=== PATIENT | male | born 1965 | race Caucasian/White ===

== ENCOUNTER 2021-11-26 19:21 | Emergency (ER) | payer OTHER, SELFPAY ==
--- NOTE | ~2021-11-26 | CT_ITS ---
EXAMINATION: CT HEAD WITHOUT CONTRAST CLINICAL INFORMATION: Cook's palsy COMPARISON: None TECHNIQUE: Contiguous axial imaging was performed from the skull base to vertex without intravenous administration of contrast. This CT examination was performed using dose optimization techniques as appropriate, variously including the following: *Automated exposure control *Adjustment of mA and/or kV according to patient size (this includes techniques or standardized protocols for targeted exams where dose is matched to indication/reason for exam; i.e. extremities or head) *Use of iterative reconstruction technique DLP: 659 mGy-cm FINDINGS: There is no midline shift. There is no mass effect. There is no hemorrhage. The basilar cisterns appear patent. The posterior fossa risk grossly within normal limits. Calcified structure right frontal parietal region measuring 9 mm. This would be consistent with a partially calcified meningioma. Mild effect on the adjacent brain. Note is made of sinus disease. There is some fullness in the region of the right CP angle anterior to the cerebellum. Best seen on image 198 of series 5. Lesion here cannot be excluded CT/CT head/brain wo con IMPRESSION: There is no acute finding here. Partially calcified structure in the right parietal region likely represents a partially calcified meningioma. There is also fullness in the right CP angle. Lesion here cannot be excluded. Recommend pre and postcontrast MR for full evaluation. This would also evaluate etiology of Cook's palsy
[2021-11-26 19:25] VITALS: BP 182/98; PULSE 80; RESP 16; TEMP 36.5; O2SAT 100; BMI 24.6
--- NOTE | 2021-11-26 19:39 | ECG_ITS ---
Test Reason : STROKE PROTOCOL Blood Pressure : / mmHG Vent. Rate : 081 BPM Atrial Rate : 081 BPM P-R Int : 164 ms QRS Dur : 076 ms QT Int : 390 ms P-R-T Axes : 041 028 018 degrees QTc Int : 453 ms Normal sinus rhythm T wave abnormality, consider anterior ischemia Abnormal ECG When compared with ECG of 22-MAR-2019 17:23, QT has lengthened Referred By: Alex Lopez Electronically Signed By:Trevon Conde
--- NOTE | 2021-11-26 20:05 | ED.NEUROSD ---
HPI - Neuro Symptoms/Deficit General Chief Complaint: Stroke Stated Complaint: ?Stroke Time Seen by Provider: 11/26/21 19:47 Source: patient Mode of arrival: ambulatory Limitations: no limitations History of Present Illness HPI Narrative: Patient has no significant past medical hx notice numbness of the left side of the face 3 days ago unable to close his left eye drooling of the foot when he eats no other weakness no headache no head injury no history of lupus or tick bite in the past Related Data Previous Rx's Medication Instructions Recorded prednisone 20 mg tablet 60 mg PO DAILY #18 tab 11/26/21 valacyclovir 1 gram tablet 1,000 mg PO TID #20 tab 11/26/21 (Valtrex) Allergies Allergy/AdvReac Type Severity Reaction Status Date / Time No Known Allergies Allergy Unverified 07/28/20 14:55 Review of Systems Review of Systems: Yes all other systems are reviewed and are negative [facility] Past Medical History Medical History (Updated 11/26/21 @ 21:18 by Alex Lopez MD) HTN (hypertension) Surgical History (Updated 11/26/21 @ 19:30 by Hayley Craig) Hx of appendectomy Social History Social History Advance Directives: No Advance Directives Information Provided: Yes Physical Exam Vital Signs: Vital Signs: Last Vital Signs Temp 98.2 F 11/26/21 21:29 Pulse 86 11/26/21 21:29 Resp 21 H 11/26/21 21:29 BP 146/97 H 11/26/21 21:29 Pulse Ox 97 11/26/21 21:29 BMI result Body Mass Index 24.6 Appearance: Alert. Oriented X3. No acute distress. Eyes: PERRLA, No Nystagmus ENT: Pharynx normal. Oral Mucosa moist Neck: Normal inspection. Neck supple. CVS: Normal heart rate and rhythm. Pulses normal. Respiratory: No respiratory distress. Equal air entry bilateral, no wheezing/rales/rhonchi Abdomen: Soft and nontender. Bowel sounds are present, Skin: Skin warm and dry. Normal skin color. Normal skin turgor. Extremities: No lower extremity edema. No calf tenderness Neuro: Oriented X 3. No motor deficit. No sensory deficit.No cerebellar signs , left 7 nerve lower motor neuron palsy MDM - Neuro Symptoms/Deficit MDM Narrative Medical decision making narrative: Patient clinically with Cook's palsy with no other predisposing factor for any chronic conditions CT head is negative for any acute space-occupying lesion will discharge patient home on prednisone and valtrex Lab Data Attestation: I reviewed the patient's lab results. Result diagrams: 11/26/21 20:15 11/26/21 21:33 Labs: Lab Results 11/26/21 11/26/21 11/26/21 Range/Units 20:15 20:18 21:33 WBC 8.3 (4.8-10.8) X10*3/uL RBC 5.23 (4.60-5.80) X10*6/uL Hgb 16.9 (14.0-18.0) g/dl Hct 48.5 (42.0-52.0) % MCV 92.7 (80.0-98.0) fL MCH 32.3 (27.0-33.0) pg MCHC 34.8 (31.0-36.0) g/dl RDW 11.6 (11.0-16.0) % Plt Count 255 (160-400) X10*3/uL MPV 10.0 (9.4-12.4) fL Immature Gran % (Auto) 0.4 (0.0-0.4) % Neut % (Auto) 57.0 (45-73) % Lymph % (Auto) 28.5 (20-40) % [place] % (Auto) 11.4 H (2-11) % Eos % (Auto) 2.2 (0-4) % Baso % (Auto) 0.5 (0-2) % Lymph # (Auto) 2.4 (1.2-4.9) X10*3/uL [place] # (Auto) 1.0 (0.1-1.2) X10*3/uL Eos # (Auto) 0.2 (0.0-0.4) X10*3/uL Baso # (Auto) 0.0 (0.0-0.2) X10*3/uL Abs Immat Gran (auto) 0.03 (0.00-0.03) X10*3/uL Absolute Neuts (auto) 4.8 (2.0-8.3) x10*3/uL Absolute Nucleated RBC 0.000 (0.0-0.012) X10*3/uL Nucleated RBC % (auto) 0.0 (0.0-0.2) /100WBC ESR 2 (0-15) MM/HR Sodium 139 (135-145) mmol/L Potassium 4.2 (3.3-5.1) mmol/L Chloride 105 (96-108) mmol/L Carbon Dioxide 24 (22-29) mmol/L Anion Gap 14 (12-20) BUN 13 (9-16) mg/dL Creatinine 0.77 (0.5-1.4) mg/dL Estim Creat Clear Calc 104.8 Estimated GFR > 60 Random Glucose 90 (60-115) mg/dL Calcium 9.2 (8.4-10.2) mg/dL Discharge Plan Discharge Clinical Impression: Cook palsy Patient Disposition: Home, Self-Care Instructions: Cook Palsy (ED) Additional Instructions: Facial exercises and care of the left eye as advised Medication as prescribed Follow-up with the neurologist if any concern Prescriptions: New prednisone 20 mg tablet 60 mg PO DAILY Qty: 18 RF: 0 valacyclovir [Valtrex] 1 gram tablet 1,000 mg PO TID Qty: 20 RF: 0 Referrals: Samra Proctor MD [Physician] - 1 week
[2021-11-26] MEDS: predniSONE 20 MG TABLET 60 MG PO (20:21)
[2021-11-26 20:38] LABS: MANUAL DIFF FLAG NO
[2021-11-26 20:43] LABS: Basophils Percent Auto 0.5 % (0-2); Eosinophils Absolute Auto 0.2 X10*3/uL (0.0-0.4); Eosinophils Percent Auto 2.2 % (0-4); Hematocrit 48.5 % (42.0-52.0); Hemoglobin 16.9 g/dl (14.0-18.0); Imm Gran Abs Auto 0.03 X10*3/uL (0.00-0.03); Imm Gran Pct Auto 0.4 % (0.0-0.4); Lymphocytes Absolute Auto 2.4 X10*3/uL (1.2-4.9); Lymphocytes Percent Auto 28.5 % (20-40); Mean Corpuscular HGB Conc 34.8 g/dl (31.0-36.0); Mean Corpuscular Hemoglobin 32.3 pg (27.0-33.0); Mean Corpuscular Volume 92.7 fL (80.0-98.0); Monocytes Percent Auto 11.4 % (2-11); Neutrophils Absolute Auto 4.8 x10*3/uL (2.0-8.3); Platelet Count 255 X10*3/uL (160-400); Red Blood Count 5.23 X10*6/uL (4.60-5.80); Red Cell Distribution Width 11.6 % (11.0-16.0); White Blood Count 8.3 X10*3/uL (4.8-10.8)
[2021-11-26 21:29] VITALS: BP 146/97; PULSE 86; RESP 21; TEMP 36.8; O2SAT 97
[2021-11-26 21:39] LABS: Erythrocyte Sedimentation Rate 2 MM/HR (0-15)
[2021-11-26 21:55] LABS: Anion Gap 14 (12-20); Blood Urea Nitrogen 13 mg/dL (9-16); Calcium 9.2 mg/dL (8.4-10.2); Carbon Dioxide 24 mmol/L (22-29); Chloride 105 mmol/L (96-108); Creatinine Clr Calc Pharmacy 104.8; Estimated Glomerular Filt Rate > 60; Glucose Random 90 mg/dL (60-115); Potassium 4.2 mmol/L (3.3-5.1); Sodium 139 mmol/L (135-145)
--- NOTE | 2021-11-26 22:13 | PC.NURSE ---
pt a&o, neuro intacted , and pt has a steady. Pt able to speack eduardo and able to swallow with no distress. Review discharge instructions with pt and medications. Pt verbalized understanding.
== END 2021-11-26 22:24 | disposition home or self-care (01) ==
PROVIDERS: Emergency Provider Internal Medicine
DX: G51.0 Bell's palsy (principal); Z79.899 Other long term (current) drug therapy
CPT/HCPCS: 36415; 70450; 80048; 85025; 85652; 93005; 99284

== ENCOUNTER 2025-07-19 01:22 | Inpatient (IN) | payer OTHER, SELFPAY ==
--- NOTE | ~2025-07-19 | CT_ITS ---
CLINICAL HISTORY: Upper abd pain; tenderness CT abdomen and pelvis with contrast Comparison: None provided Findings: CT abdomen: Lung bases are clear. No acute bony abnormality. No focal hepatic lesions. Main portal vein is patent. Spleen, pancreas, adrenal glands, and kidneys are unremarkable for acute findings. Peripherally calcified gallstone measures 12 mm in size. Low-density stones are also seen within the gallbladder. No definitive gallbladder wall thickening. There is suggestion of mild pericholecystic induration. Common bile duct is of normal caliber. Moderate fluid distention of the stomach. Small bowel loops are of normal caliber. Small central mesenteric lymph nodes are all less than 5 mm in size. These are increased in number but not size. CT pelvis: No focal areas of colonic wall thickening are identified. No findings of appendicitis. No free fluid or free air. Urinary bladder is moderately distended. IMPRESSION: 1. Cholelithiasis with questionable mild pericholecystic induration. Clinical correlation advised as to the possibility of cholecystitis. Gallbladder ultrasound could further evaluate. 2. Otherwise, no acute findings. This document has been electronically signed by: Samir Payton MD on 07/19/2025 03:02:29
--- NOTE | ~2025-07-19 | US_ITS ---
CLINICAL HISTORY: Biliary Colic US abdomen limited Comparison: CT/SR - CT ABDOMEN PELVIS W IV CON - 07/19/25 02:11 EDT Findings: Echogenic shadowing stones are seen filling the gallbladder resulting in wall echo shadow sign. Gallbladder wall is thickened measuring between 5 and 7 mm in thickness. No discrete pericholecystic fluid is identified. Patient has a reported positive sonographic Silverman's sign. Common bile duct is within normal limits. No intrahepatic biliary ductal dilatation. IMPRESSION: Cholelithiasis resulting in wall echo shadow sign. There are additional findings of gallbladder wall thickening and a positive sonographic Silverman's sign. These are the 3 most specific ultrasound findings of cholecystitis. Surgical consultation suggested. This document has been electronically signed by: Samir Payton MD on 07/19/2025 04:43:26
[2025-07-19 01:27] VITALS: BP 189/77; PULSE 64; RESP 20; TEMP 36.8; O2SAT 100; BMI 21.4
--- NOTE | 2025-07-19 01:49 | ED.ABDPAIN ---
HPI - Abdominal Pain General Chief Complaint: Abdominal Pain Stated Complaint: severe abd pain Time Seen by Provider: 07/19/25 01:33 Source: patient Mode of arrival: ambulatory Limitations: no limitations History of Present Illness ED Provider: Keshav SHEA HPI narrative: The patient is a 59-year-old male presenting to the ED reporting approximate 1.5 hours prior to arrival in the ED he developed severe epigastric abdominal pain radiating to his shoulder. The patient reports he was seen approximately 1 month ago in [place] while visiting a friend and diagnosed with gallstones. The patient reports he attempted to follow up with GI however due to insurance issues he was unable to see GI without a PCP referral which he has not yet been able to facilitate. The patient reports he was doing well until he ate 3 cheeseburgers this evening with subsequent development of pain as described. The patient denies associated fever/chills, nausea, vomiting, diarrhea, recent sick contacts, or recent trauma. Related Data Previous Rx's ?Medication ?Instructions ?Recorded prednisone 20 mg tablet 60 mg (3 x 20 mg) PO DAILY #18 tabs 11/26/21 valacyclovir 1 gram tablet 1,000 mg PO TID #20 tabs 11/26/21 (Valtrex) lisinopril 5 mg tablet 5 mg PO DAILY 30 days #30 tabs 02/24/22 Allergies Allergy/AdvReac Type Severity Reaction Status Date / Time No Known Allergies Allergy Verified 07/19/25 01:29 Review of Systems Review of Systems Yes all other systems are reviewed and are negative PMFSH Past Medical History Medical History (Updated 07/19/25 @ 08:04 by Jame Alfaro DO) HTN (hypertension) Surgical History (Updated 11/26/21 @ 19:30 by Hayley Craig) Hx of appendectomy Social History Social History Housing: Apartment Alcohol intake: former Patient Tobacco Use Status: Current everyday Tobacco user Cigarettes Per Day: 10 Smoked in Last 30 Days: Yes e-Cigarette/Vaping Use: Never Used Second Hand Smoke Exposure: Yes Use of substances other than those prescribed or required for medical reasons: No Advance Directives: No Advance Directives Information Provided: No service: No Current occupational status: employed Current occupation: [employer] Current occupational exposures/hazards: No Physical Exam ED Vital Signs: Vital Signs - 24 hr 07/19/25 01:27 07/19/25 04:29 Temperature 98.2 F 98.1 F Pulse Rate 64 52 Respiratory Rate 20 18 Blood Pressure 189/77 H 175/75 H Pulse Oximetry 100 100 Oxygen Delivery Method Room Air Room Air BMI result Body Mass Index 21.4 CONSTITUTIONAL: The patient appears uncomfortable, but otherwise non-toxic, well nourished and in no acute distress. Vital signs as documented. HEAD: Atraumatic, normocephalic. EYES: EOMs grossly intact, pupils equal, conjunctiva clear, no exudate. ENT: Nares patent, no discharge. Airway patent, no audible stridor, visible mucosa is pink and moist without noted lesions. NECK: Trachea is midline, no obvious masses or gross abnormalities. CHEST: Symmetric movement, normal appearance. LUNGS: LS present and CTAB, no w/r/r. Non-labored work of breathing. CARDIAC: Regular Rhythm, S1/S2 appreciated, no murmurs, rubs or gallops. ABDOMEN: Abdomen soft x4 quadrants, positive tenderness to palpation of the epigastrium and right upper quadrant, negative rebound, negative Silverman's, no palpable masses or organomegaly. Negative CVAT bilaterally. : Deferred. EXTREMITIES: Normal tone, moves all extremities spontaneously without reported pain. No obvious acute injury or deformity noted. NEURO: Alert and oriented x3, CN II-XII appear grossly intact. Cerebellar Functioning grossly intact. No obvious sensory or motor deficits. Speech clear and appropriate. PSYCH: normal affect, appropriate eye contact, fluid speech, with appropriate response to questioning. No reported suicidality or homicidality. SKIN: Warm, dry, color appropriate, normal turgor. No rashes noted. Course Reevaluation(s) Reevaluation #1: 7:06 AM 07/19/2025 (Dr. Jame Alfaro): I, Dr. Alfaro have take over the care of this patient, I reviewed pertinent blood work and imaging, re-evaluated the patient when appropriate. High suspicion for cholecystitis, we will await surgical consultation we will order fluids and IV antibiotics Medical Decision Making Medical Decision Making MDM Narrative: 1:53 AM 07/19/2025 (Rickey SHEA): The patient is a 59-year-old male presenting to the ED for evaluation of 1.5 hours of epigastric abdominal pain radiating to the shoulders which began shortly after eating cheeseburgers. Patient was diagnosed with gallstones while visiting a friend's house and [place] approximately 1-2 months ago. Patient did not follow up with GI due to insurance issues. In the ED patient is nontoxic appearing, but in obvious discomfort. Abdomen exam reveals tenderness of the epigastrium and right upper quadrant without rebound or Silverman's. Patient will be evaluated with laboratory workup, CT abdomen and pelvis, and we will treat symptoms with fluids, Toradol, and Zofran. 3:05 AM 07/19/2025 (Rickey SHEA): Patient reports pain is only minimally controlled with Toradol, morphine added. The patient's CT has resulted and shows cholelithiasis with questionable mild pericholecystic induration, clinical correlation advised for the possibility of acute cholecystitis. Gallbladder ultrasound recommended for further evaluation. The patient's laboratory evaluation reveals no leukocytosis, anemia, electrolyte abnormality, or SAFIA. The patient's LFTs are unremarkable with normal lipase. The patient will be held in the ED for ultrasound tomorrow to further clarify findings on CT. 3:46 AM 07/19/2025 (Rickey SHEA): Thankfully [address]s currently working is also an radiologic technologist and we will perform the gallbladder ultrasound. Patient will be signed out to Dr. Salazar for disposition pending ultrasound results. Admission/Observation Consideration of admission/observation: Escalation of care including admission/observation considered Lab Data MDM Lab Attestation statement: I reviewed the patient's lab results. 07/19/25 01:50 07/19/25 01:50 Labs: Lab Results 07/19/25 Range/Units 01:50 WBC 7.9 (4.8-10.8) X10*3/uL RBC 5.10 (4.60-5.80) X10*6/uL Hgb 15.8 (14.0-18.0) g/dl Hct 44.0 (42.0-52.0) % MCV 86.3 (80.0-98.0) fL MCH 31.0 (27.0-33.0) pg MCHC 35.9 (31.0-36.0) g/dl RDW 12.0 (11.0-16.0) % Plt Count 214 (160-400) X10*3/uL MPV 10.5 (9.4-12.4) fL Immature Gran % (Auto) 0.1 (0.0-0.4) % Neut % (Auto) 61.7 (45-73) % Lymph % (Auto) 26.6 (20-40) % [place] % (Auto) 7.6 (2-11) % Eos % (Auto) 3.4 (0-4) % Baso % (Auto) 0.6 (0-2) % Lymph # (Auto) 2.1 (1.2-4.9) X10*3/uL [place] # (Auto) 0.6 (0.1-1.2) X10*3/uL Eos # (Auto) 0.3 (0.0-0.4) X10*3/uL Baso # (Auto) 0.1 (0.0-0.2) X10*3/uL Abs Immat Gran (auto) 0.01 (0.00-0.03) X10*3/uL Absolute Neuts (auto) 4.9 (2.0-8.3) x10*3/uL Absolute Nucleated RBC 0.000 (0.0-0.012) X10*3/uL Nucleated RBC % (auto) 0.0 (0.0-0.2) /100WBC Sodium 144 (135-145) mmol/L Potassium 4.1 (3.3-5.1) mmol/L Chloride 110 H (96-108) mmol/L Carbon Dioxide 24 (22-29) mmol/L Anion Gap 14 (12-20) BUN 25 H (9-16) mg/dL Creatinine 0.85 (0.5-1.4) mg/dL Estim Creat Clear Calc 88.1 Estimated GFR > 60 Random Glucose 114 (60-115) mg/dL Calcium 9.4 (8.4-10.2) mg/dL Total Bilirubin 0.5 (0.0-1.0) mg/dL AST 24 (5-37) U/L ALT 18 (0-40) U/L Alkaline Phosphatase 86 (39-117) U/L Total Protein 7.0 (6.5-8.0) g/dL Albumin 4.6 (3.5-5.0) g/dL Lipase 22 (8-78) U/L Radiology Impression Discussion of test interpretation with radiology: I have reviewed the radiologist's reading. Radiologist Impression: CLINICAL HISTORY: Upper abd pain; tenderness CT abdomen and pelvis with contrast Comparison: None provided Findings: CT abdomen: Lung bases are clear. No acute bony abnormality. No focal hepatic lesions. Main portal vein is patent. Spleen, pancreas, adrenal glands, and kidneys are unremarkable for acute findings. Peripherally calcified gallstone measures 12 mm in size. Low-density stones are also seen within the gallbladder. No definitive gallbladder wall thickening. There is suggestion of mild pericholecystic induration. Common bile duct is of normal caliber. Moderate fluid distention of the stomach. Small bowel loops are of normal caliber. Small central mesenteric lymph nodes are all less than 5 mm in size. These are increased in number but not size. CT pelvis: No focal areas of colonic wall thickening are identified. No findings of appendicitis. No free fluid or free air. Urinary bladder is moderately distended. IMPRESSION: 1. Cholelithiasis with questionable mild pericholecystic induration. Clinical correlation advised as to the possibility of cholecystitis. Gallbladder ultrasound could further evaluate. 2. Otherwise, no acute findings. This document has been electronically signed by: Samir Payton MD on 07/19/2025 03:02:29 Medications Administered Generic Name Dose Route Start Last Admin Trade Name Freq PRN Reason Stop Dose Admin Sodium Chloride 1,000 mls @ 999 mls/hr 07/19/25 07:15 07/19/25 07:14 Ns IV 07/19/25 08:15 999 mls/hr .Q1H1M SELENE Administration Discontinued Medications Generic Name Dose Route Start Last Admin Trade Name Freq PRN Reason Stop Dose Admin Ceftriaxone Sodium 2 gm 07/19/25 07:05 07/19/25 07:15 Ceftriaxone Sodium 2 Gm Vial IVPUSH 07/19/25 07:06 2 gm ONCE ONE Administration Sodium Chloride 1,000 mls @ 999 mls/hr 07/19/25 01:45 07/19/25 02:54 Ns IV 07/19/25 02:45 Infused .Q1H1M SELENE Infusion Iohexol 85 ml 07/19/25 02:15 07/19/25 02:15 Iohexol 350 Mg/Ml 100 Ml Infus..Btl IV 07/19/25 02:16 85 ml ONCE ONE Administration Ketorolac Tromethamine 15 mg 07/19/25 01:48 07/19/25 01:52 Ketorolac Tromethamine 15 Mg/Ml Vial IVPUSH 07/19/25 01:49 15 mg ONCE ONE Administration Morphine Sulfate 4 mg 07/19/25 02:48 07/19/25 02:56 Morphine Sulfate 4 Mg/Ml Cartridge IVPUSH 07/19/25 02:49 4 mg ONCE ONE Administration Protocol Morphine Sulfate 4 mg 07/19/25 03:45 07/19/25 03:50 Morphine Sulfate 4 Mg/Ml Cartridge IVPUSH 07/19/25 03:46 4 mg ONCE ONE Administration Protocol Ondansetron HCl 4 mg 07/19/25 01:48 07/19/25 01:52 Ondansetron Hcl 4 Mg/2 Ml Vial IVPUSH 07/19/25 01:49 4 mg ONCE ONE Administration Ondansetron HCl 4 mg 07/19/25 03:45 07/19/25 03:50 Ondansetron Hcl 4 Mg/2 Ml Vial IVPUSH 07/19/25 03:46 4 mg ONCE ONE Administration Discharge Plan Discharge Clinical Impression: Acute cholecystitis Patient Disposition: Admitted As Inpatient
[2025-07-19 01:53] LABS: MANUAL DIFF FLAG NO
[2025-07-19 01:54] LABS: Hematocrit 44.0 % (42.0-52.0); Hemoglobin 15.8 g/dl (14.0-18.0); Imm Gran Abs Auto 0.01 X10*3/uL (0.00-0.03); Imm Gran Pct Auto 0.1 % (0.0-0.4); Lymphocytes Absolute Auto 2.1 X10*3/uL (1.2-4.9); Mean Corpuscular HGB Conc 35.9 g/dl (31.0-36.0); Mean Corpuscular Hemoglobin 31.0 pg (27.0-33.0); Mean Corpuscular Volume 86.3 fL (80.0-98.0); NRBC Abs Auto 0.000 X10*3/uL (0.0-0.012); NRBC Pct Auto 0.0 /100WBC (0.0-0.2); Platelet Count 214 X10*3/uL (160-400); Red Blood Count 5.10 X10*6/uL (4.60-5.80); White Blood Count 7.9 X10*3/uL (4.8-10.8)
--- OUTSIDE RECORDS SUMMARY | 2025-07-19 01:58 | XMS_ITS | Clinical Summary ---
Author Organization [address] Address [address] [place] [phone] Phone Care Team Providers Care [employer] Name Role Phone Unavailable Primary Care Provider Unavailabl e Allergies No known active allergies Encounters Date Type Department Care Team Description 05/30/2025 4:38 AM EDT - 05/30/2025 9:35 AM EDT Emergency [facility] [address] [place] [phone] Chu Carpio MD Stevens, Anna L, MD Abdominal pain, unspecified abdominal location (Primary Dx); Calculus of gallbladder without cholecystitis without obstruction; Enteritis Discharge Disposition: Home or Self Care 05/30/2025 Travel from Last 3 Months Social History Tobacco Use Types Packs/Day Years Used Date Smoking Tobacco: Never Assessed Interpersonal Safety Answer Date Record ed Is there anyone in your life that is hurting or threatening you in anyway? no 05/30/2025 Physical Indicators of Abuse No evidence of phys ical abuse 05/30/2025 Sex and Gender Information Value Date Recorded Sex Assigned at Not on file Legal Sex Male 4:32 AM EDT Gender Identity Not on file Sexual Orientation Not on file Last Filed Vital Signs Vital Sign Reading Time Taken Comments Blood Pressure 132/73 05/30/2025 7:16 AM EDT Pulse 61 05/30/2025 7:16 AM EDT Temperature 36.6 C (97.8 F) 05/30/2025 4:40 AM EDT Respiratory Rate 12 05/30/2025 7:16 AM EDT Oxygen Saturation 96% 05/30/2025 8:33 AM EDT Inhaled Oxygen Concentration - - Weight 67.1 kg (147 lb 14.9 oz) 05/30/2025 4:43 AM EDT Height - - Body Mass Index - - Plan of Treatment Health Maintenance Due Date Last Done Comments HIV screening 1979 Hepatitis C screening 1984 Tetanus adult (Td q 10,TDAP once) 1986 Lipid disorder screening 2006 Colon cancer screening, Colonoscopy 2011 Pneumococcal Vaccine (50+ ye ars) (1 of 1 - PCV) 2016 Shingles vaccine (Shingrix) (1 of 2 - Shingrix (RZV) 2 Dose Standard Series) 2016 Covid-19 vaccine series (1 - ) 07/12/2025 Influenza vaccine 07/12/2025 Diabetes screening 05/30/2028 05/30/2025 RSV Immunization (1 - 1-dose 75+ series) 2041 Meningococcal B Vaccine Aged Out No l onger eligible based on patient's age to complete this topic Meningococcal Vaccine Aged Out No darnell fredy eligible based on patient's age to complete this topic Procedures Procedure Name Priority Date/Time Associated Diagnosis Comments US ABDOMEN LIMITED STAT 05/30/2025 8: 03 AM EDT CTA CHEST ABDOMEN PELVIS W AND/OR WO IV CONTRAST Life/Limb Threatening (Within 1 hour) 05/30/2025 5:25 AM EDT EXTRA GOLD TOP SPECIMEN ( GH LMW) STAT 05/30/2025 4:58 AM EDT EXTRA BLUE TOP SPECIMEN ( GH) STAT 05/30/2025 4:58 AM EDT CBC AND DIFFERENTIAL STAT 05/30/2025 4:56 AM EDT COMPREHENSIVE METABOLIC PANEL STAT 05/30/2025 4:56 AM EDT EKG Routine 05/30/2025 4:56 AM EDT CBC WITH AUTO DIFFERENTIAL STAT 05/30/2025 4:56 AM EDT COMPREHENSIVE METABOLIC PANEL STAT 05/30/2025 4:56 AM EDT TROPONIN T HIGH SENSITIVITY, 0 HOUR BASELINE WITH REFLEX (BH GH LMW YH) STAT 05/30/2025 4:56 AM EDT LIPASE STAT 05/30/2025 4:56 AM EDT from Last 3 Months Results * US Abdomen Limited (US Gall Bladder) (05/30/2025 8:03 AM EDT) Anatomical Region Laterality Modality Abdomen, RCC Abdomen/Pelvis Ultr asound 05/30/2025 8:38 AM EDT Impressions 05/30/2025 8:44 AM EDT Cholelithiasis. No definite evidence of cholecystitis Reported and signed by: Anni Maier MD Narrative 05/30/2025 8:44 AM EDT US ABDOMEN LIMITED HISTORY: ruq pain. COMPARISON: None. TECHNIQUE: Gallbladder ultrasound was performed using 2D rao-scale imaging. Color duplex and spectral Doppler were also utilized where applicable. FINDINGS: Gallbladder wall thickness is measured at 4 mm. The gallbladder appears filled with stones and sludge. Common bile duct measures 4 mm. Procedure Note Anni Maier MD - 05/30/2025 US ABDOMEN LIMITED HISTORY: ruq pain. COMPARISON: None. TECHNIQUE: Gallbladder ultrasound was performed using 2D rao-scaleimaging. Color duplex and spectral Doppler were also utilized whereapplicable. FINDINGS: Gallbladder wall thickness is measured at 4 mm. The gallbladder appearsfilled with stones and sludge. Common bile duct measures 4 mm. IMPRESSION: Cholelithiasis. No definite evidence of cholecystitis Reported and signed by: Anni Maier MD Chu Carpio MD IMG US ORDERABLES Final Result * CTA CHEST, ABDOMEN and PELVIS (05/30/2025 5:25 AM EDT) Anatomical Region Laterality Modality Chest, Abdomen, Pelvis, Orth o Pelvis, Abdomen and Pelvis, Vascular, RCC Abdomen/Pelvis, RCC CTA Chest Co mputed Tomography 05/30/2025 7:40 AM EDT Impressions 05/30/2025 7:49 AM EDT 1. Normal thoracic and abdominal aorta. 2. No acute lung abnormality. 3. Fluid-filled mildly prominent small bowel loops in the abdomen may indicate enteritis.. 4. Cholelithiasis. Reported and signed by: MD Brooke Solo 05/30/2025 7:49 AM EDT CTA CHEST, ABDOMEN AND PELVIS HISTORY: epigastric pain to back, htn. COMPARISON: None. G9637 - RADIATION DOSE ACQUIRED DURING SCAN: 580.95 mGy.cm. The [facility] Imaging Department strives for high quality imaging with the lowest possible radiation dose. For more information on medical radiation exposure please visit: [email or web address] . TECHNIQUE: Contiguous unenhanced axial images were obtained through the chest. This was followed by axial images through the chest, abdomen, and pelvis obtained during the arterial phase of enhancement. Only intravenous contrast (70 cc of Omnipaque 350) was administered. Sagittal and coronal reformatted images were provided. 3D/MIP reformatted images were constructed on a dependent workstation and stored per protocol. FINDINGS: Preliminary noncontrast images demonstrate normal caliber of the thoracic aorta. There is no intramural hematoma. Following contrast administration the aorta is normally enhanced. There is no dissection. The mesenteric and renal arteries are patent. 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 There is no iliac artery aneurysm or stenosis. There is a 10 mm peripherally enhancing left thyroid nodule. The cardiac size is within normal limits. There is no pericardial effusion. The lungs are clear. The trachea and central bronchial tree are patent. There is no mediastinal, hilar, or axillary adenopathy. The liver is homogenous. The gallbladder is stone filled. There is no associated inflammatory change. There is no biliary duct dilatation. The spleen, pancreas and adrenal glands appear normal. The kidneys are nonobstructed. The bladder is unremarkable. No free intra-abdominal fluid. No bowel obstruction. Several small bowel loops appear fluid-filled and slightly distended. Air-fluid level is seen. The maximal diameter approximately 2 cm . Appendix is not identified. No pelvic or para-aortic adenopathy. No acute skeletal abnormality. The visualized osseous structures are intact. Procedure Note Anni Maier MD - 05/30/2025 CTA CHEST, ABDOMEN AND PELVIS HISTORY: epigastric pain to back, htn. COMPARISON: None. G9637 - RADIATION DOSE ACQUIRED DURING SCAN: 580.95 mGy.cm. The [facility] Imaging Department strives for high qualityimaging with the lowest possible radiation dose. For more information onmedical radiation exposure please visit: [email or web address] . TECHNIQUE: Contiguous unenhanced axial images were obtained through thechest. This was followed by axial images through the chest, abdomen, andpelvis obtained during the arterial phase of enhancement. Only intravenouscontrast (70 cc of Omnipaque 350) was administered. Sagittal and coronalreformatted images were provided. 3D/MIP reformatted images wereconstructed on a dependent workstation and stored per protocol. FINDINGS: Preliminary noncontrast images demonstrate normal caliber of thethoracic aorta. There is no intramural hematoma. Following contrastadministration the aorta is normally enhanced. There is no dissection. Themesenteric and renal arteries are patent. 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 There is no iliac artery aneurysm or stenosis. There is a 10 mm peripherally enhancing left thyroid nodule. The cardiacsize is within normal limits. There is no pericardial effusion. The lungs are clear. The trachea and central bronchial tree are patent.There is no mediastinal, hilar, or axillary adenopathy. The liver is homogenous. The gallbladder is stone filled. There is noassociated inflammatory change. There is no biliary duct dilatation. Thespleen, pancreas and adrenal glands appear normal. The kidneys arenonobstructed. The bladder is unremarkable. No free intra-abdominal fluid. No bowel obstruction. Several small bowelloops appear fluid-filled and slightly distended. Air-fluid level is seen.The maximal diameter approximately 2 cm . Appendix is not identified. Nopelvic or para-aortic adenopathy. No acute skeletal abnormality. The visualized osseous structures areintact. IMPRESSION: 1. Normal thoracic and abdominal aorta. 2. No acute lung abnormality. 3. Fluid-filled mildly prominent small bowel loops in the abdomen mayindicate enteritis.. 4. Cholelithiasis. Reported and signed by: Anni Maier MD Chu Carpio MD IMG CT ORDERABLES Final Result * Extra blue top specimen (05/30/2025 4:58 AM EDT) [facility] Hold Specimen Hold 05/30/2025 2:02 PM EDT [facility] Blood Venipuncture / Unknown 05/30/2025 4:58 AM EDT 05/30/2025 5:05 AM EDT us Chu Carpio MD LAB BLOOD ORDERABLES Final Res ult Performing Organization Address [facility]/[place] [address], [facility] [phone] * Extra gold top specimen (05/30/2025 4:58 AM EDT) Blood Venipuncture / Unknown 05/30/2025 4:58 AM EDT 05/30/2025 5:05 AM EDT Chu Carpio MD LAB BLOOD ORDERABLES Final Res ult Performing Organization Address [facility]/[place] [address], [facility] [phone] * (ABNORMAL) Comprehensive metabolic panel (05/30/2025 4:56 AM EDT) [facility] Sodium 143 136 - 145 mmol/L 05/30/2025 5:44 AM [facility] Potassium 4.2 3.5 - 5.1 mmol/L 05/30/2025 5:44 AM [facility] Chloride 110(H) 98 - 107 mmol/L 05/30/2025 5:44 AM [facility] CO2 27 21 - 32 mmol/L 05/30/2025 5:44 AM [facility] Anion Gap 6 5 - 15 mmol/L 05/30/2025 5:44 AM [facility] Glucose 129(H) 65 - 110 mg/dL 05/30/2025 5:44 AM [facility] Comment: Non-fastin-110 mg/dL Fasting (minimum 6 hrs): 65-99 mg/dL BUN 21(H) 7 - 18 mg/dL 05/30/2025 5:44 AM [facility] Creatinine 0.98 0.70 - 1.30 mg/dL 05/30/2025 5:44 AM [facility] Calcium 9.1 8.5 - 10.1 mg/dL 05/30/2025 5:44 AM [facility] Total Protein 7.0 6.4 - 8.2 g/dL 05/30/2025 5:44 AM [facility] Albumin 3.8 3.4 - 5.0 g/dL 05/30/2025 5:44 AM [facility] Globulin 3.2 2.5 - 5.0 g/dL 05/30/2025 5:44 AM [facility] Total Bilirubin 0.4 0.2 - 1.0 mg/dL 05/30/2025 5:44 AM [facility] Comment:Use of this assay is not recommended for patients undergoing treatment with Eltrombopag due to the potential for falsely elevated results. Alkaline Phosphatase 80 45 - 117 U/L 05/30/2025 5:44 AM [facility] Alanine Aminotransferase (ALT) 26 12 - 78 U/L 05/30/2025 5:44 AM [facility] Aspartate Aminotransferase (AST) 13(L) 15 - 37 U/L 05/30/2025 5:44 AM [facility] eGFR (Creatinine) >60 >=60 mL/min/1. 73m2 05/30/2025 5:44 AM [facility] Comment: [facility] utilizes CKD-EPI Creatinine 2020 to report eGFR. Values < 60 mL/min/1.73 m2 may indicate CKD if present for more than three months AND creatinine is at steady state. The eGFR provides a rough estimate of kidney function. For further guidance, please refer to the CKD: Adult [employer] Signature pathway. Creatinine Delta 05/30/20 5:44 AM [facility] Comment:No previous creatini ne <5.00 mg/dL is available within the previous 12 months to calculate a delta creatinine. Blood Venipuncture / Unknown 05/30/2025 4:56 AM EDT 05/30/2025 5:05 AM EDT us Chu Carpio MD LAB BLOOD ORDERABLES Final Res ult Performing Organization Address City/[facility]/[place] [address], [facility] [phone] * Troponin T High Sensitivity, Emergency; 0 hour baseline with reflex (1 hour and 3 hour) (54:56 AM EDT) [facility] High Sensitivity Troponin T <6 See Comment ng/L 05/30/2025 5:30 AM EDT [facility] Comment:High Sensitivity Tro ponin T levels should be interpreted in the context of the [facility] Care Signature pathway. Blood Venipuncture / Unknown 05/30/2025 4:56 AM EDT 05/30/2025 5:05 AM EDT Chu Carpio MD LAB BLOOD ORDERABLES Final Res ult Performing Organization Address [facility] [place] [address], [facility] [phone] * CBC auto differential (05/30/2025 4:56 AM EDT) [facility] WBC 9.8 4.0 - 11.0 x1000/ L 05/30/2025 5:07 AM [facility] RBC 5.16 4.00 - 6.00 M/ L 05/30/2025 5:07 AM [facility] Hemoglobin 16.2 13.2 - 17.1 g/dL 05/30/2025 5:07 AM [facility] Hematocrit 46.70 38.50 - 50.00 % 05/30/2025 5:07 AM [facility] MCV 90.5 80.0 - 100.0 fL 05/30/2025 5:07 AM [facility] MCH 31.4 27.0 - 33.0 pg 05/30/2025 5:07 AM [facility] MCHC 34.7 31.0 - 36.0 g/dL 05/30/2025 5:07 AM [facility] RDW-CV 11.9 11.0 - 15.0 % 05/30/2025 5:07 AM [facility] Platelets 213 150 - 420 x1000/ L 05/30/2025 5:07 AM [facility] MPV 10.8 8.0 - 12.0 fL 05/30/2025 5:07 AM [facility] Neutrophils 71.8 39.0 - 72.0 % 05/30/2025 5:07 AM [facility] Lymphocytes 19.5 17.0 - 50.0 % 05/30/2025 5:07 AM [facility] Monocytes 6.5 4.0 - 12.0 % 05/30/2025 5:07 AM [facility] Eosinophils 1.6 0.0 - 5.0 % 05/30/2025 5:07 AM [facility] Basophil 0.4 0.0 - 1.4 % 05/30/2025 5:07 AM [facility] Immature Granulocytes 0.2 0.0 - 1.0 % 05/30/2025 5:07 AM [facility] nRBC 0.0 0.0 - 1.0 % 05/30/2025 5:07 AM [facility] Absolute Lymphocyte Count 1.91 0.60 - 3.70 x 1000/ L 05/30/2025 5:07 AM [facility] Monocyte Absolute Count 0.64 0.00 - 1.00 x 1000/ L 05/30/2025 5:07 AM [facility] Eosinophil Absolute Count 0.16 0.00 - 1.00 x 1000/ L 05/30/2025 5:07 AM [facility] Basophil Absolute Count 0.04 0.00 - 1.00 x 1000/ L 05/30/2025 5:07 AM [facility] Absolute Immature Granulocyte Count 0.02 0.00 - 0.30 x 1000/ L 05/30/2025 5:07 AM [facility] Absolute nRBC 0.00 0.00 - 1.00 x 1000/ L 05/30/2025 5:07 AM [facility] ANC (Abs Neutrophil Count) 7.02 2.00 - 7.60 x 1000/ L 05/30/2025 5:07 AM [facility] Blood Venipuncture / Unknown 05/30/2025 4:56 AM EDT 05/30/2025 5:05 AM EDT us Chu Carpio MD LAB BLOOD ORDERABLES Final Res ult Performing Organization Address [facility] [place] [address], [facility] [phone] * Lipase (05/30/2025 4:56 AM EDT) Lipase 33 13 - 75 U/L 05/30/2025 5:44 AM EDT [facility] Blood Venipuncture / Unknown 05/30/2025 4:56 AM EDT 05/30/2025 5:05 AM EDT us Chu Carpio MD LAB BLOOD ORDERABLES Final Res ult Performing Organization Address [facility] [address], [facility] [phone] * EKG (05/30/2025 4:56 AM EDT) Heart Rate 54 bpm [facility] EKG QRS Interval 70 ms [facility] EKG QT Interval 458 ms [facility] EKG QTC Interval 435 ms [facility] EKG P [place] 20 deg [facility] EKG QRS [place] 65 deg [facility] EKG T Wave [place] 36 deg [facility] EKG P-R Interval 198 msec [facility] EKG SEVERITY Abnormal ECG severity [facility] EKG Comment::SINUS BRADYCARDIA:C onsider left ventricular hypertrophy:Counterclock pedraza rotation of the heart:Non specific ST-T wave abnormalities:No previous:Electronically Signed On 05-30-2025 14:01:22 EDT by Michael Marrero MD OTHER / Unknown 05/30/2025 4 :56 AM EDT us Chu Carpio MD ECG ORDERABLES Edited Result - Final Performing Organization Address [facility]/State/ZIP Co de Phone Number [facility] EKG from Last 3 Months Insurance [address] [place] [id number] [employer] [address] [place] [phone] [employer]
[2025-07-19 02:07] LABS: Alanine Aminotransferase 18 U/L (0-40); Albumin Level 4.6 g/dL (3.5-5.0); Alkaline Phosphatase 86 U/L (39-117); Anion Gap 14 (12-20); Aspartate Amino Transferase 24 U/L (5-37); Blood Urea Nitrogen 25 mg/dL (9-16); Calcium 9.4 mg/dL (8.4-10.2); Carbon Dioxide 24 mmol/L (22-29); Chloride 110 mmol/L (96-108); Creatinine Clr Calc Pharmacy 88.1; Estimated Glomerular Filt Rate > 60; Lipase 22 U/L (8-78); Potassium 4.1 mmol/L (3.3-5.1); Sodium 144 mmol/L (135-145); Total Protein 7.0 g/dL (6.5-8.0)
[2025-07-19] MEDS: iohexoL 350 MG/ML 100 ML INFUS..BTL 85 ML IV (02:15)
[2025-07-19 04:29] VITALS: BP 175/75; PULSE 52; RESP 18; TEMP 36.7; O2SAT 100
--- NOTE | 2025-07-19 05:01 | PC.NURSE ---
Pt ambulating to and from bathroom with a steady gait.
--- NOTE | 2025-07-19 07:30 | PC.NURSE ---
Patient is a 59-year-old male with a PMH of HTN, presentedto the ED reporting approximate 1.5 hours prior to arrival in the ED he developed severe epigastric abdominal pain radiating to his shoulder. The patient reports he was seen approximately 1 month ago in [place] while visiting a friend and diagnosed with gallstones. The patient reports he attempted to follow up with GI however due to insurance issues he was unable to see GI without a PCP referral which he has not yet been able to facilitate. The patient reports he was doing well until he ate 3 cheeseburgers this evening with subsequent development of pain as described. U/S shows cholelithiasis. Alert and oriented. Lungs clear bilat. Respirations even and non-labored. Abdomen soft with positive sounds. c/i sl epigastric pain 3/10. No LE edema noted. Pending surgical consult.
--- NOTE | 2025-07-19 08:07 | P.HPGS_ITS ---
History of Present Illness History of Present Illness Date of Service: 07/19/25 Chief complaint: acute cholecystitis Narrative: Matthias Glez is a 59 year old male presenting with complaints of abdominal pain in the right upper quadrant. The pain began during the night in his felt mainly in the epigastrium and right upper quadrant with radiation into the shoulders. He reports a previous episode several weeks ago while in [place] and was evaluated in the emergency department in [place]. He was found at that time to have cholecystitis due to cholelithiasis. He was well until last evening when he began to have this similar pain with the associated nausea without vomiting. He denied fever or chills. He subsequently presented to the emergency department and was noted to be exquisitely tender in the right upper quadrant with a positive Silverman sign. CT abdomen and pelvis as well as ultrasound of the abdomen both confirm cholelithiasis with wall thickening and pericholecystic inflammatory changes consistent with acute cholecystitis. He is admitted to the surgical service for further management of the acute cholecystitis. Review of Systems Review of Systems: Yes all other systems are reviewed and are negative [facility] Past Medical History Medical History HTN (hypertension) Surgical History Surgical History Hx of appendectomy Social History Social History Housing: Apartment Alcohol intake: former Patient Tobacco Use Status: Current everyday Tobacco user Cigarettes Per Day: 10 Smoked in Last 30 Days: Yes e-Cigarette/Vaping Use: Never Used Second Hand Smoke Exposure: Yes Use of substances other than those prescribed or required for medical reasons: No Advance Directives: No Advance Directives Information Provided: No service: No Current occupational status: employed Current occupation: [employer] Current occupational exposures/hazards: No Meds Allergies Allergy/AdvReac Type Severity Reaction Status Date / Time No Known Allergies Allergy Verified 07/19/25 01:29 Active Medications: Current Medications Hydromorphone HCl (Hydromorphone Hcl 0.5 Mg/0.5 Ml Syringe) 0.5 mg IVPUSH Q3H PRN; Protocol PRN Reason: Pain, Severe (Pain Scale 7-10) Sodium Chloride (Ns) 1,000 mls @ 999 mls/hr IV .Q1H1M SELENE Stop: 07/19/25 08:15 Last Admin: 07/19/25 07:14 Dose: 999 mls/hr Acetaminophen (Ofirmev) 1,000 mg in 100 mls @ 400 mls/hr IV Q6H PRN PRN Reason: Pain, Mild (Pain Scale 1-3) Dextrose/Lactated Ringer's (D5lr) 1,000 mls @ 125 mls/hr IVCONT .Q8H SELENE Piperacillin Sod/Tazobactam (Sod 3.375 gm/ Sodium Chloride) 50 mls @ 100 mls/hr IV Q6H SELENE Magnesium Hydroxide (Milk Of Magnesia 30 Ml Oral.Susp) 30 ml PO DAILY PRN PRN Reason: Constipation Ondansetron HCl (Ondansetron Hcl 4 Mg/2 Ml Vial) 4 mg IVPUSH QID PRN PRN Reason: Nausea Oxycodone HCl (Oxycodone Hcl Immed Release 5 Mg Tablet) 5 mg PO Q6H PRN PRN Reason: Pain, Moderate(Pain Scale 4-6) Sodium Chloride (0.9 % Sodium Chloride Flush 3 Ml Syringe) 3 ml IVFLUSH QSHIFT SELENE Zolpidem Tartrate (Zolpidem Tartrate 5 Mg Tablet) 5 mg PO BEDTIME PRN PRN Reason: Insomnia Physical Exam Vital Signs: Vital Signs: Last Vital Signs Temp 98.1 F 07/19/25 04:29 Pulse 52 07/19/25 04:29 Resp 18 07/19/25 04:29 BP 175/75 H 07/19/25 04:29 Pulse Ox 100 07/19/25 04:29 O2 Del Method Room Air 07/19/25 04:29 BMI result Body Mass Index 21.4 Const: General: cooperative and no acute distress Nutritional Appearance: well nourished Orientation/consciousness: patient oriented x3 Limitations: no limitations HEENT: Head: Yes normocephalic and Yes atraumatic Ears: hearing grossly normal bilaterally Resp: Effort & Inspection: normal respiratory effort, no audible wheezes, no cough and no respiratory distress Cardio: Jugular venous distension: no JVD GI: Inspection: Yes normal to inspection Palpation (GI): Soft to palpation, Tenderness to palpation present (GI) in the RUQ and Silverman's sign positive; with no rebound tenderness, no guarding and not rigid Percussion: Yes normal to percussion Auscultation: normal bowel sounds Rectal Exam - Male: Yes deferred Skin: Other: Warm, dry, no rash Neuro: General: patient oriented x3 Extrem: General: Yes no clubbing, cyanosis or edema Results Results Labs: Short CBC 07/19/25 Range/Units 01:50 WBC 7.9 (4.8-10.8) X10*3/uL Hgb 15.8 (14.0-18.0) g/dl Hct 44.0 (42.0-52.0) % Plt Count 214 (160-400) X10*3/uL BMP 07/19/25 01:50 Sodium 144 Potassium 4.1 Chloride 110 H Carbon Dioxide 24 BUN 25 H Creatinine 0.85 Calcium 9.4 Liver Function 07/19/25 Range/Units 01:50 Total Bilirubin 0.5 (0.0-1.0) mg/dL AST 24 (5-37) U/L ALT 18 (0-40) U/L Alkaline Phosphatase 86 (39-117) U/L Albumin 4.6 (3.5-5.0) g/dL Assessment and Plan (1) Acute cholecystitis: Status: Acute Plan 59-year-old male patient presenting with complaints of epigastric and right upper quadrant abdominal pain found on workup to have acute cholecystitis due to cholelithiasis. This is his 2nd episode of similar pain. I recommended a laparoscopic or possible open cholecystectomy and after discussion of the procedure, risks, and alternatives, he consents to the surgery. He has been added onto the operative schedule for today. Quality Stroke Does the patient have a stroke diagnosis?: No VTE Prior VTE?: No VTE Risk Level:: Surgical - low VTE Device Contraindication: N/A - Device Ordered VTE Drug Contraindication: Treatment Not Indicated Procedures Date of Service Date of Service: 07/19/25
--- NOTE | 2025-07-19 09:00 | PC.NURSE ---
Patient noted to have an allergic reaction to zosyn with large hives noted to trunk with assoc purititis and lip tingling. Provider notified and benadryl given with good effect.
--- NOTE | 2025-07-19 09:03 | HO.ANESPROP2 ---
Documented by User: Deann Griffin NP 07/19/25 09:03 HPI - Anesthesia Eval Consult details Narrative: 59 yr old male for laparoscopic or possible open cholecystectomy PMFSH Active Problems Active Problems: All Active Problems Acute cholecystitis (Acute) HTN (hypertension) (Acute) Cook's palsy (Acute) Past Medical History Medical History HTN (hypertension) Surgical History Surgical History Hx of appendectomy Social History Social History Household Members: Spouse and Children Housing: Apartment Do you presently have visiting nurse or other home services: No Alcohol intake: former Patient Tobacco Use Status: Current everyday Tobacco user Tobacco use type: Cigarette Cigarettes Per Day: 6 e-Cigarette/Vaping Use: Never Used Second Hand Smoke Exposure: Yes service: No Current occupational status: employed Current occupation: [employer] Current occupational exposures/hazards: No Meds Allergies Allergy/AdvReac Type Severity Reaction Status Date / Time piperacillin Allergy Hives Verified 07/19/25 08:39 Active Medications: Current Medications Hydromorphone HCl (Hydromorphone Hcl 0.5 Mg/0.5 Ml Syringe) 0.5 mg IVPUSH Q3H PRN; Protocol PRN Reason: Pain, Severe (Pain Scale 7-10) Last Admin: 07/19/25 08:08 Dose: 0.5 mg Acetaminophen (Ofirmev) 1,000 mg in 100 mls @ 400 mls/hr IV Q6H PRN PRN Reason: Pain, Mild (Pain Scale 1-3) Dextrose/Lactated Ringer's (D5lr) 1,000 mls @ 125 mls/hr IVCONT .Q8H SELENE Magnesium Hydroxide (Milk Of Magnesia 30 Ml Oral.Susp) 30 ml PO DAILY PRN PRN Reason: Constipation Ondansetron HCl (Ondansetron Hcl 4 Mg/2 Ml Vial) 4 mg IVPUSH QID PRN PRN Reason: Nausea Oxycodone HCl (Oxycodone Hcl Immed Release 5 Mg Tablet) 5 mg PO Q6H PRN PRN Reason: Pain, Moderate(Pain Scale 4-6) Sodium Chloride (0.9 % Sodium Chloride Flush 3 Ml Syringe) 3 ml IVFLUSH QSHIFT SELENE Zolpidem Tartrate (Zolpidem Tartrate 5 Mg Tablet) 5 mg PO BEDTIME PRN PRN Reason: Insomnia Home Medications ?Medication ?Instructions ?Recorded ?Confirmed ?Last Taken ?Type No Known Home Meds 07/19/25 07/19/25 Unknown History Exam Height,Weight and Vital Signs: Height 5 ft 9 in Weight 65.771 kg Last Vital Signs Temp 98.1 F 07/19/25 04:29 Pulse 52 07/19/25 04:29 Resp 18 07/19/25 04:29 BP 175/75 H 07/19/25 04:29 Pulse Ox 100 07/19/25 04:29 O2 Del Method Room Air 07/19/25 04:29 Pertinent Lab Results Pertinent Lab Results: Laboratory Tests 07/19/25 01:50 WBC 7.9 RBC 5.10 Hgb 15.8 Hct 44.0 MCV 86.3 MCH 31.0 MCHC 35.9 RDW 12.0 Plt Count 214 MPV 10.5 Immature Gran % (Auto) 0.1 Neut % (Auto) 61.7 Lymph % (Auto) 26.6 [place] % (Auto) 7.6 Eos % (Auto) 3.4 Baso % (Auto) 0.6 Lymph # (Auto) 2.1 [place] # (Auto) 0.6 Eos # (Auto) 0.3 Baso # (Auto) 0.1 Abs Immat Gran (auto) 0.01 Absolute Neuts (auto) 4.9 Absolute Nucleated RBC 0.000 Nucleated RBC % (auto) 0.0 Sodium 144 Potassium 4.1 Chloride 110 H Carbon Dioxide 24 Anion Gap 14 BUN 25 H Creatinine 0.85 Estim Creat Clear Calc 88.1 Estimated GFR > 60 Random Glucose 114 Calcium 9.4 Total Bilirubin 0.5 AST 24 ALT 18 Alkaline Phosphatase 86 Total Protein 7.0 Albumin 4.6 Lipase 22 Documented by User: Ramya West MD 07/20/25 08:56 [facility] Past Medical History Medical History HTN (hypertension) Family History Family history of problems with anesthesia: No Surgical History Surgical History Hx of appendectomy History of Problems with Anesthesia: No Social History Social History Household Members: Spouse and Children Housing: Apartment Do you presently have visiting nurse or other home services: No Alcohol intake: former Patient Tobacco Use Status: Current everyday Tobacco user Tobacco use type: Cigarette Cigarettes Per Day: 6 e-Cigarette/Vaping Use: Never Used Second Hand Smoke Exposure: Yes service: No Current occupational status: employed Current occupation: [employer] Current occupational exposures/hazards: No Meds Allergies Allergy/AdvReac Type Severity Reaction Status Date / Time piperacillin Allergy Hives Verified 07/19/25 08:39 Home Medications ?Medication ?Instructions ?Recorded ?Confirmed ?Last Taken ?Type No Known Home Meds 07/19/25 07/19/25 Unknown History Exam Pertinent Lab Results Pertinent Lab Results: oLaboratory Tests 07/19/25 01:50 WBC 7.9 RBC 5.10 Hgb 15.8 Hct 44.0 MCV 86.3 MCH 31.0 MCHC 35.9 RDW 12.0 Plt Count 214 MPV 10.5 Immature Gran % (Auto) 0.1 Neut % (Auto) 61.7 Lymph % (Auto) 26.6 [place] % (Auto) 7.6 Eos % (Auto) 3.4 Baso % (Auto) 0.6 Lymph # (Auto) 2.1 [place] # (Auto) 0.6 Eos # (Auto) 0.3 Baso # (Auto) 0.1 Abs Immat Gran (auto) 0.01 Absolute Neuts (auto) 4.9 Absolute Nucleated RBC 0.000 Nucleated RBC % (auto) 0.0 Sodium 144 Potassium 4.1 Chloride 110 H Carbon Dioxide 24 Anion Gap 14 BUN 25 H Creatinine 0.85 Estim Creat Clear Calc 88.1 Estimated GFR > 60 Random Glucose 114 Calcium 9.4 Total Bilirubin 0.5 AST 24 ALT 18 Alkaline Phosphatase 86 Total Protein 7.0 Albumin 4.6 Lipase 22 Airway Mallampati Class: II TM Dist: >3cm Neck ROM: Full Heart: rrr Lungs: cta Assessment and Plan Assessment Anesthesia Assessment: Anesthesia Plan Discussed and Chart Reviewed Final Anesthetic Review Family History of Problems with Anesthesia: No History of Problems with Anesthesia: No NPO: Yes ASA Class: II Final Preanesthetic Review: No Changes in Pt Med Stat, Meds/Allgs Chart Reviewed and Consent Obtained/Reviewed Patient Risk: Low Procedure Risk: Low Anesthetic Plan Anesthetic Plan: GA Disposition: Standard PACU
[2025-07-19] MEDS: Dextrose 5 % and Lactated Ring 1,000 ML 125 ML IVCONT ×2 (09:51→18:17)
--- NOTE | 2025-07-19 10:19 | PHA.MEDREC ---
Addendum entered by Bridgette Little RPh 07/19/25 10:28: reviewed by [facility]. Original Note: Pharmacy Consult ? Medication Reconciliation Pharmacy has completed the medication reconciliation. Spoke with pt and he confirmed he is not taking any medications at this time.
[2025-07-19 12:00] VITALS: BP 157/78; PULSE 57; RESP 16; TEMP 37.1; O2SAT 99
[2025-07-19 14:39] VITALS: BP 168/95; PULSE 62; RESP 15; TEMP 36.5; O2SAT 100
[2025-07-19 17:43] VITALS: BP 182/80; PULSE 64; RESP 18; TEMP 36.9; O2SAT 98
[2025-07-19 19:44] VITALS: BP 184/78; PULSE 59; RESP 18; TEMP 37.6; O2SAT 98
[2025-07-20] VITALS (13 sets, daily range): BP systolic 119–163; BP diastolic 67–86; PULSE 61–82; RESP 12–20; TEMP 36.4–37.7; O2SAT 96–99
[2025-07-20] MEDS: Dextrose 5 % and Lactated Ring 1,000 ML 125 ML IVCONT (01:41)
[2025-07-20 07:04] LABS: Anion Gap 12 (12-20); Blood Urea Nitrogen 6 mg/dL (9-16); Calcium 8.7 mg/dL (8.4-10.2); Carbon Dioxide 26 mmol/L (22-29); Chloride 107 mmol/L (96-108); Creatinine Clr Calc Pharmacy 118.8; Estimated Glomerular Filt Rate > 60; Potassium 3.7 mmol/L (3.3-5.1); Sodium 141 mmol/L (135-145)
--- NOTE | 2025-07-20 08:08 | MHC.SHP ---
Pre-Procedural Eval Section A - 24 Hr Update-Section A only Date of Service: 07/20/25 The patient is an INPATIENT: Yes Changes since office visit: Yes Patient answered all questions; No Cold of Flu in the past 2 weeks, No New Medical Problems and No Changes in Medication The patient has been examined within 24 hours of the surgical procedure. The History & Physical has been completed within 30 days and I have reviewed it.: Yes Section B - Complete if H&P > 30 days Chief Complaint: acute cholecystitis Allergies: Allergies Allergy/AdvReac Type Severity Reaction Status Date / Time piperacillin Allergy Hives Verified 07/19/25 08:39 Plan Diagnosis/Plan: Unchanged I have reviewed the history and physical and performed a pertinent physical examination on my patient. No changes have occurred unless specified. Time Spent With Patient Time: Total time managing care of this patient today ____ minutes.
[2025-07-20] MEDS: cefoTEtan disodium 2 GM VIAL IVPUSH (10:10)
--- NOTE | 2025-07-20 10:27 | W.PM.OPN ---
Operative Note Operative Note Date of Service: 07/20/25 Narrative: Preoperative diagnosis: Acute cholecystitis, cholelithiasis Postoperative diagnosis: Same Procedure: Laparoscopic cholecystectomy Surgeon: Matthias Garg MD Metallurgical Engineering Technician: Annabel Cope PA-C; Saúl Nicholas PA-C, Cindy Snider, MS-3 Anesthesia: General endotracheal Indications for procedure: 59-year-old male patient presenting with complaints of abdominal pain in the right upper quadrant and epigastrium found to have multiple gallstones within the gallbladder with pericholecystic fluid and thickened gallbladder wall consistent with acute cholecystitis. Operative findings: Acute cholecystitis due to cholelithiasis Specimen: gallbladder Estimated blood loss: 2 mL Complications: None Procedure details: Patient was brought to the OR and placed in a supine position. After administering general anesthesia the patient's abdomen was prepped with ChloraPrep and draped in a sterile fashion. A surgical time-out was called the consent confirmed. Patient received preoperative antibiotics and Venodyne boots were in place. Local anesthesia consisting of 0.5% Sensorcaine without epinephrine was infiltrated in a periumbilical region. A 5 mm incision was made above the umbilicus in a transverse fashion. The Veress needle was then inserted while elevating abdominal cavity with towel clips. After positive drop test the abdomen was insufflated to a pressure of 15 mm of mercury. The Veress needle was then removed and a 5 mm trocar inserted. The camera was inserted in the abdomen explored. A 12 mm trocar was then placed in the epigastrium. Two 5 mm trocars placed in the right upper quadrant by the assistant professor of english. The patient was placed in reverse Trendelenburg positioning and rotated to the left. The gallbladder was grasped with the fundus and retracted cephalad by the assistant professor of english. The infundibulum was then grasped and retracted away from the liver bed, also by the assistant professor of english. The Dolphin dissected was then used by the surgeon to dissect the peritoneum off the infundibulum to reveal the junction with the cystic duct. Cystic artery was noted slightly medial and posterior to the cystic duct. After obtaining a critical view the cystic duct was doubly clipped and divided. The cystic artery was then doubly clipped and divided. The gallbladder was then dissected off the liver bed using electrocautery with an L hook. Hemostasis was assured all times using the electrocautery. When the gallbladder is completely dissected off the liver bed was placed in an Endo-Catch bag and brought out through the epigastric incision. The gallbladder was sent to pathology for further examination. The abdomen was then re-examined. The liver bed was irrigated and suctioned dry. No bleeding or bile leak could be identified. CO2 was then evacuated and all trocars removed. Fascia was closed at the epigastric incision using a [id number] 0 Polysorb suture. Skin was closed in all incisions using a subcuticular 4 0 Polysorb suture by both the surgeon and assistant professor of english. Sterile dressings consisting of Steri-Strips, 2 x 2 gauze, and Tegaderm were then applied. The patient tolerated the procedure well. Sponge instrument and needle counts reported as correct. The patient was transferred to PACU in stable condition.
[2025-07-20] MEDS: Lactated Ringers 1,000 ML 80 ML IVCONT (12:06)
[2025-07-21] MEDS: Lactated Ringers 1,000 ML 80 ML IVCONT (00:06)
[2025-07-21 03:28] VITALS: BP 113/59; PULSE 72; RESP 18; TEMP 37.2; O2SAT 97
--- NOTE | 2025-07-21 07:01 | P.PNGS_ITS ---
Subjective Subjective Date of Service: 07/21/25 <[facility] Filed: 07/21/25 07:09> 07/21/25 <Saúl Nicholas PA-C - Last Filed: 07/21/25 07:50> Interval history: The patient is a 59 y/o male POD#1 s/p laparoscopic cholecystectomy for acute cholecystitis. Today he is doing very well. He says he has some soreness with movement which, at its worst, is a 5/10. He is not taking any pain medication at this time. He reports some intermittent R shoulder pain. He is eating a full diet without N/V. He has had flatus but no BM. He has been ambulating to the bathroom. He reports no issues with urination, chest pain, fever, chills, or shortness of breath. <[facility] Filed: 07/21/25 07:09> Physical Exam 2 Vital Signs: Vital Signs: Last Vital Signs Temp 98.9 F 07/21/25 03:28 Pulse 72 07/21/25 03:28 Resp 18 07/21/25 03:28 BP 113/59 L 07/21/25 03:28 Pulse Ox 97 07/21/25 03:28 O2 Del Method Room Air 07/21/25 03:28 BMI result Body Mass Index 21.4 <[facility] Filed: 07/21/25 07:09> Const: General: cooperative, comfortable, no acute distress, alert and awake <[facility] Filed: 07/21/25 07:09> Orientation/consciousness: patient oriented x3 <[facility] Filed: 07/21/25 07:09> Resp: Effort & Inspection: normal respiratory effort and able to speak in complete sentences <[facility] Filed: 07/21/25 07:09> Auscultation: clear to auscultation bilaterally, no crackles, no rales, no rhonchi and no wheezes <[facility] Filed: 07/21/25 07:09> Cardio: Jugular venous distension: no JVD <[facility] Filed: 07/21/25 07:09> Rate: regular rate <[facility] Filed: 07/21/25 07:09> Rhythm: regular rhythm <[facility] Last Filed: 07/21/25 07:09> Heart sounds: no click, no gallops, no murmurs and no rubs <[facility] Filed: 07/21/25 07:09> GI: Palpation (GI): Soft to palpation, nontender and no guarding <[facility] Filed: 07/21/25 07:09> Percussion: Yes normal to percussion <[facility] Filed: 07/21/25 07:09> Auscultation: normal bowel sounds <[facility] Filed: 07/21/25 07:09> Skin: Other: 4x wound dressings in place, 3x bloody/b rown discharge, no surrounding erythema <[facility] Filed: 07/21/25 07:09> Neuro: General: patient oriented x3 <[facility] Filed: 07/21/25 07:09> Objective Data Active Medications Calcium Carbonate (Calcium Carbonate 750 Mg Tab.Chew) 750 mg PO Q6H PRN PRN Reason: Heartburn Hydromorphone HCl (Hydromorphone Hcl 0.5 Mg/0.5 Ml Syringe) 0.5 mg IVPUSH Q3H PRN; Protocol PRN Reason: Pain, Severe (Pain Scale 7-10) Last Admin: 07/19/25 08:08 Dose: 0.5 mg Documented By: AJITH Acetaminophen (Ofirmev) 1,000 mg in 100 mls @ 400 mls/hr IV Q6H PRN PRN Reason: Pain, Mild (Pain Scale 1-3) Lactated Ringer's (Lr) 1,000 mls @ 80 mls/hr IVCONT .[id number] SELENE Last Admin: 07/21/25 00:06 Dose: 80 mls/hr Documented By: RIP Magnesium Hydroxide (Milk Of Magnesia 30 Ml Oral.Susp) 30 ml PO DAILY PRN PRN Reason: Constipation Ondansetron HCl (Ondansetron Hcl 4 Mg/2 Ml Vial) 4 mg IVPUSH QID PRN PRN Reason: Nausea Oxycodone HCl (Oxycodone Hcl Immed Release 5 Mg Tablet) 5 mg PO Q6H PRN PRN Reason: Pain, Moderate(Pain Scale 4-6) Sodium Chloride (0.9 % Sodium Chloride Flush 3 Ml Syringe) 3 ml IVFLUSH QSHIFT [facility] Last Admin: 07/20/25 20:58 Dose: Not Given Documented By: RIP Non-Admin Reason: IV Running Zolpidem Tartrate (Zolpidem Tartrate 5 Mg Tablet) 5 mg PO BEDTIME PRN PRN Reason: Insomnia [facility] Last Filed: 07/21/25 07:09> Labs CBC & Chem 7: 07/19/25 01:50 07/20/25 06:18 <[facility] Last Filed: 07/21/25 07:09> Labs: Laboratory Results - last 24 hr 07/20/25 06:18 Anion Gap 12 Estim Creat Clear Calc 118.8 Estimated GFR > 60 Random Glucose 124 H Calcium 8.7 D <[facility] Last Filed: 07/21/25 07:09> Procedures Date of Service Date of Service: 07/21/25 [facility] Last Filed: 07/21/25 07:09> 07/21/25 <Saúl Nicholas PA-C - Last Filed: 07/21/25 07:50> Progress Note: A&P Assessment and plan (1) S/P laparoscopic cholecystectomy: Status: Acute <[facility] Last Filed: 07/21/25 07:09> Assessment and Plan: The patient is a 59 y/o male POD#1 s/p laparoscopic cholecystectomy for acute cholecystitis who is doing well symptomatically and has had flatus. His physical exam shows some discharge in his wound dressings but is otherwise benign. He should be considered for discharge. PLAN Consider for discharge Continue ambulating Continue full diet Continue using spirometry 10x per hour Continue monitoring for BM <[facility] - Last Filed: 07/21/25 07:09> The patient is a 59 y/o male POD#1 s/p laparoscopic cholecystectomy for acute cholecystitis who is doing well symptomatically and has had flatus. His physical exam shows some discharge in his wound dressings but is otherwise benign. He should be considered for discharge. PLAN Consider for discharge Continue ambulating Continue full diet Continue using spirometry 10x per hour Continue monitoring for BM Patient seen and examined independently. I agree with the above assessment and plan. Patient overall doing well. Abdominal exam soft and mouth of the line aside from some incisional site tenderness. There is some mild strike through on the dressings. Instructed him that he can remove these tomorrow at home. We are planning for discharge today, we will send for pain control and bowel regimen. Patient will follow up in one-week in the office <Saúl Nicholas PA-C - Last Filed: 07/21/25 07:50> Time Spent With Patient Time: Total time managing care of this patient today ____ minutes. <Cinyd Gutierrezh - Last Filed: 07/21/25 07:09> Quality Stroke Does the patient have a stroke diagnosis?: No <Cindy Gutierrezh Filed: 07/21/25 07:09> VTE Prior VTE?: No <Cindy Gutierrezh Last Filed: 07/21/25 07:09> VTE Risk Level:: Surgical - low <Cindy Gutierrezh Last Filed: 07/21/25 07:09> VTE Device Contraindication: N/A - Device Ordered <Cindy Gutierrezh Last Filed: 07/21/25 07:09> VTE Drug Contraindication: Treatment Not Indicated <Cindy Gutierrezh Last Filed: 07/21/25 07:09>
[2025-07-21 07:04] VITALS: BP 117/63; PULSE 64; RESP 16; TEMP 36.5; O2SAT 96
[2025-07-21] MEDS: oxyCODONE HCl Immed Release 5 MG TABLET PO (08:27)
--- NOTE | 2025-07-21 08:42 | PM.DS ---
DS: Providers Provider Date of Service: 07/21/25 Date of admission: 07/19/25 07:45 Date of discharge: 07/21/25 Primary care physician: CECILIA Hopson Admitting clinician: Matthias Garg Attending physician on admission: Matthias Garg Consults: 07/19/25 18:39 Consult to Hospitalist Routine Comment: Consulting Provider: [facility] Reason For Exam: Hypertension Attending physician on discharge: Matthias Garg DS: Diagnosis Discharge Diagnosis (1) S/P laparoscopic cholecystectomy: Status: Acute DS: Summary Hospital Course Hospital Course: Admission HPI: Matthias Glez is a 59 year old male presenting with complaints of abdominal pain in the right upper quadrant. The pain began during the night in his felt mainly in the epigastrium and right upper quadrant with radiation into the shoulders. He reports a previous episode several weeks ago while in [place] and was evaluated in the emergency department in [place]. He was found at that time to have cholecystitis due to cholelithiasis. He was well until last evening when he began to have this similar pain with the associated nausea without vomiting. He denied fever or chills. He subsequently presented to the emergency department and was noted to be exquisitely tender in the right upper quadrant with a positive Silverman sign. CT abdomen and pelvis as well as ultrasound of the abdomen both confirm cholelithiasis with wall thickening and pericholecystic inflammatory changes consistent with acute cholecystitis. He is admitted to the surgical service for further management of the acute cholecystitis. Hospital course: Plan to proceed with laparoscopic cholcystectomy. Patient was brought to OR on 07/20. He tolerated the procedure well and was transferred to the med surg floor for continued management. POD 1 patient doign well overall. Minimal pain at rest, some with ambulation. also having some right shoulder pain, likely secondary to positioning in the OR, or from retained gas after abdomen insufflation. labs were stable, patient tolerating diet, ambulating. [place] ready to be discharged. At the time of dc, patient was in stable condition, abdomen is soft, benign aside from incisional site tenderness. Will f/u in 1-2 weeks in the office Status at Discharge Functional status at discharge: independent ambulation Overall status at discharge: patient is progressing back to baseline Time Attestation Discharge Coordination Time (in mins): 30 Quality: Safe Use of Opioids Does Pt have an Active Cancer Diagnosis on the Problem List?: No Quality: Stroke Does the patient have a stroke diagnosis?: No Physical Exam Vital Signs: Vital Signs: Last Vital Signs Temp 97.7 F 07/21/25 07:04 Pulse 64 07/21/25 07:04 Resp 16 07/21/25 07:04 BP 117/63 07/21/25 07:04 Pulse Ox 96 07/21/25 07:04 O2 Del Method Room Air 07/21/25 07:04 BMI result Body Mass Index 21.4 Const: General: cooperative, comfortable, no acute distress, alert and awake Orientation/consciousness: patient oriented x3 Resp: Effort & Inspection: normal respiratory effort and able to speak in complete sentences Auscultation: clear to auscultation bilaterally, no crackles, no rales, no rhonchi and no wheezes Cardio: Jugular venous distension: no JVD Rate: regular rate Rhythm: regular rhythm Heart sounds: no click, no gallops, no murmurs and no rubs GI: Palpation (GI): Soft to palpation, nontender and no guarding Percussion: Yes normal to percussion Auscultation: normal bowel sounds Skin: Other: 4x wound dressings in place, 3x bloody/brown discharge, no surrounding erythema Neuro: General: patient oriented x3 DS: Data Data Completed and Pending Pending studies at discharge: Pending at discharge 07/20/25 10:13 Surgical [PTH] Routine Discharge Plan Discharge Anticipated Discharge Date/Time: 07/21/25 07:43 Patient Disposition: Home, Self-Care Discharge Diagnosis: acute cholecystitis, s/p laparoscopic cholecystectomy Referrals: Matthias Pascual FNP- [Primary Care Provider, Internal Medicine] - 1 Week Matthias Garg MD [Physician, General Surgery] - 1 Week Discharge Medications: New docusate sodium [Colace] 100 mg capsule 100 mg PO BID PRN (Reason: constipation) Qty: 30 0RF oxycodone 5 mg tablet 5 mg PO Q4H PRN (Reason: pain (scale score 7-10)) Qty: 26 0RF Rx Instructions: Partial Fill upon patient request. Discharge Orders: Discharge Order (Routine); Ordered 07/21/25 Ordered By: Saúl Nicholas Diet: Low fat, low cholesterol Activity on Discharge: No heavy lifting Stand Alone Forms: Patient Portal Discharge page Print Language: Japanese Activity Restrictions/Additional Instructions: If the incision area is tender, you may apply an ice pack for short intervals (No more than 20 minutes on, followed by at least 20 minutes off). Do not apply heat. Do not use creams, lotions, or topical antibiotics. Ok to shower. Remove clear dressings 3 days following your procedure. You have steri strips (small white strips) covering your incision- these will fall off ~1 week. No heavy lifting (>10lbs) or strenuous activity! Take Tylenol Extra-strength 1-2 tabs every 6 hours for the first day, then as needed. Oxycodone every 6-8 hours as needed for pain. Colace 100 mg every day as needed for constipation. Follow up in office with Dr. Garg in 1 week. ([phone]) Call Your Doctor If: -Your temperature exceeds 101.5? F -You experience excessive pain or swelling -You have an unexpected reaction to medication -You have excessive bleeding -You experience continued vomiting/nausea -Your incision begins to separate -Your incision shows signs of infection such as increased redness, swelling, excessive pain, drainage (light blood or clear fluid is normal) or heat Care Plan Goals: Return to baseline health and resume normal activities following recovery period. Health Concerns: HTN acute cholecystitis Plan of Treatment: s/p laparoscopic cholecystectomy pain control follow up in the office in 1 week Assessment: Doing well post op.
--- NOTE | 2025-07-21 08:43 | MHC.CM.PN ---
Patient DX Cholecystitis + Cholelythiasis s/p Cholecystectomy 07/20/25. Lives with . Independent with all functional mobility. PCP Matthias Pascual Patient is discharge today to home self care He has arranged for his son to provide transportation home.
--- NOTE | 2025-07-21 09:07 | HO.POSTANES ---
Post Anesthesia Evaluation Post Anesthesia Evaluation Date of Service: 07/21/25 Vital Signs: Vital Signs Temp Pulse Resp BP Pulse Ox O2 Del Method 07/21/25 07:04 97.7 F 64 16 117/63 96 Room Air 07/21/25 03:28 98.9 F 72 18 113/59 L 97 Room Air Anesthesia: General Mental Status: Awake Pain Control: Satisfactory Nausea/Vomiting: None Hydration: Adequate Anesthesia-Related Issues: No Anes. Related Issues
== END 2025-07-21 08:57 | disposition home or self-care (01) | DRG 263 ==
LOC: HO.ED 07:04 → HO.EDOVER 07:58 → HO.S3 16:59
PROVIDERS: Emergency Medicine; Admitting Provider Surgery; Emergency Provider Emergency Medicine; PCP Nurse Practitioner Family; Visit Provider Surgery
PROC: 0FT44ZZ Resection of Gallbladder, Percutaneous Endoscopic Approach (ICD-10-PCS; CPT 47562; principal; 2025-07-20 08:40)
DX: K80.00 Calculus of gallbladder with acute cholecystitis without obstruction (principal); F17.210 Nicotine dependence, cigarettes, uncomplicated; I10 Essential (primary) hypertension; Z71.6 Tobacco abuse counseling
CPT/HCPCS: 47562; 36415; 74177; 76705; 80048; 80053; 83690; 85025; 88304; 99285; J0131; J0360; J0696; J1100; J1171; J1200; J1885; J2003; J2270; J2405; J2543; J2704; J3010; J7120; Q9967

== ENCOUNTER → 2025-07-19 01:35 | Outpatient (BNV) | payer OTHER, SELFPAY | PROVIDERS: Emergency Provider Emergency Medicine; PCP Nurse Practitioner Family; Visit Provider Radiology Diagnostic Radiology | DX: K80.20 Calculus of gallbladder without cholecystitis without obstruction (principal) | CPT/HCPCS: 74177; 76705 ==

== ENCOUNTER → 2025-07-19 07:45 | Outpatient (BNV) | payer OTHER, SELFPAY | PROVIDERS: Admitting Provider Surgery; Emergency Provider Emergency Medicine; PCP Nurse Practitioner Family; Visit Provider Surgery | DX: K80.00 Calculus of gallbladder with acute cholecystitis without obstruction (principal) | CPT/HCPCS: 47562; 99222 ==

== ENCOUNTER 2025-07-27 09:00 | Outpatient (AMB) | payer OTHER, SELFPAY ==
--- NOTE | 2025-07-27 09:31 | MHC.OFFVIS ---
Vital Signs 07/27/25 09:35 Height 5 ft 9 in Weight 140 lb BMI 20.7 BP 150/69 H Blood Pressure Location Lt brachial Position Sitting Pulse 58 Intake Visit Reasons: s/p Lap Charmaine Intake Note: Patient is seen in office for post op assessment post laparoscopic cholecystectomy. Pt c/o: denies any concerns, healing as expected surgery:07/20/25 Component Lab Tech Required: No Accompanied by: Family/Other Allergies piperacillin Allergy (Verified 07/27/25 09:32) Hives Medication List - Last Reconciled 07/27/25 by Matthias Garg MD docusate sodium (Colace) 100 mg PO BID PRN HPI Comments Details: 59-year-old male patient returning 1 week following laparoscopic cholecystectomy performed on 07/20/2025. Operative findings were consistent with acute cholecystitis with gangrenous changes to the gallbladder wall. He tolerated the procedure well and feels much improved today. He denies any nausea, vomiting, fever, chills, diarrhea, constipation or abdominal pain. He is planning on returning to work on 08/02/2025. [facility] Medical History HTN (hypertension) Surgical History Hx laparoscopic cholecystectomy (07/20/25) Hx of appendectomy Social History Household Members: Spouse and Children Housing: Apartment Do you presently have visiting nurse or other home services: No Alcohol intake: former Patient Tobacco Use Status: Current everyday Tobacco user Tobacco use type: Cigarette Cigarettes Per Day: 6 e-Cigarette/Vaping Use: Never Used Second Hand Smoke Exposure: Yes service: No Current occupational status: employed Current occupation: [employer] Current occupational exposures/hazards: No Physical Exam Const General: comfortable Nutritional Appearance: well nourished Orientation/consciousness: patient oriented x3 Limitations: no limitations Resp Effort & Inspection: normal respiratory effort GI Other: Soft, nondistended, well-healed trocar incisions with minimal bruising. No redness or discharge. No hernias noted with Valsalva maneuvers. Neuro General: patient oriented x3 Extrem General: Yes no clubbing, cyanosis or edema Assessment & Plan Assessment & Plan (1) S/P laparoscopic cholecystectomy: Code(s): Z90.49 - Acquired absence of other specified parts of digestive tract Category: Surgical (2) Acute cholecystitis: Code(s): K81.0 - Acute cholecystitis Category: Medical Plan 59-year-old male patient returning 1 week following laparoscopic cholecystectomy for acute cholecystitis. He tolerated the procedure well in his wounds are healing nicely. He should continue to avoid lifting greater than 10 lb until next week at which time he may return to normal activity. He should avoid fatty/fried foods for approximately 1 month. He should follow up as needed. Coding Level of Care Code Global (02778) Diagnoses S/P laparoscopic cholecystectomy Z90.49 Acute cholecystitis K81.0
[2025-07-27 09:35] VITALS: BP 150/69; PULSE 58; BMI 20.7
--- OUTSIDE RECORDS SUMMARY | 2025-07-27 11:10 | XMS_ITS | Clinical Summary ---
Author Organization [address] Address [address] [place] [phone] Phone Care Team Providers Care Plastic Surgery Specialist Name Role Phone Unavailable Primary Care Provider Unavailabl e Allergies No known active allergies Encounters Date Type Department Care Team Description 05/30/2025 4:38 AM EDT - 05/30/2025 9:35 AM EDT Emergency [facility] [address] [place] [address] [phone] Chu Carpio MD Stevens, Anna L, MD [...] Shingrix (RZV) 2 Dose Standard Series) 2016 Influenza vaccine 06/11/2025 Covid-19 vaccine series (1 - ) 07/12/2025 Diabetes screening 05/30/2028 05/30/2025 RSV Immunization [...] DOSE ACQUIRED DURING SCAN: 580.95 mGy.cm. The [facility] Imaging Department strives for high quality [...] DOSE ACQUIRED DURING SCAN: 580.95 mGy.cm. The [facility] Imaging Department strives for high qualityimaging [...] blue top specimen (05/30/2025 4:58 AM EDT) [facility] Hold Specimen Hold 05/30/2025 2:02 PM EDT [facility] Blood Venipuncture / Unknown 05/30/2025 4:58 AM EDT 05/30/2025 5:05 AM EDT us Chu Carpio MD LAB BLOOD ORDERABLES Final Res ult Performing Organization Address [facility] [place] [address], [facility] [phone] * Extra gold top specimen (05/30/2025 4:58 AM EDT) Blood Venipuncture / Unknown 05/30/2025 4:58 AM EDT 05/30/2025 5:05 AM EDT Chu Carpio MD LAB BLOOD ORDERABLES Final Res ult Performing Organization Address [facility] [place] [address], [facility] [phone] * (ABNORMAL) Comprehensive metabolic panel (05/30/2025 4:56 AM EDT) [facility] Sodium 143 136 - 145 mmol/L 05/30/2025 5:44 AM [facility] Potassium 4.2 3.5 - 5.1 mmol/L 05/30/2025 5:44 AM [facility] Chloride 110(H) 98 - 107 mmol/L 05/30/2025 5:44 AM [facility] CO2 27 21 - 32 mmol/L 05/30/2025 5:44 AM [facility] Anion Gap 6 5 - 15 mmol/L 05/30/2025 5:44 AM [facility] Glucose 129(H) 65 - 110 mg/dL 05/30/2025 5:44 AM [facility] Comment: Non-fastin-110 mg/dL Fasting (minimum 6 hrs): 65-99 mg/dL BUN 21(H) 7 - 18 mg/dL 05/30/2025 5:44 AM [facility] Creatinine 0.98 0.70 - 1.30 mg/dL 05/30/2025 5:44 AM [facility] Calcium 9.1 8.5 - 10.1 mg/dL 05/30/2025 5:44 AM [facility] Total Protein 7.0 6.4 - 8.2 g/dL 05/30/2025 5:44 AM [facility] Albumin 3.8 3.4 - 5.0 g/dL 05/30/2025 5:44 AM [facility] Globulin 3.2 2.5 - 5.0 g/dL 05/30/2025 5:44 AM [facility] Total Bilirubin 0.4 0.2 - 1.0 mg/dL 05/30/2025 5:44 AM [facility] Comment:Use of this assay is not recommended for patients undergoing treatment with Eltrombopag due to the potential for falsely elevated results. Alkaline Phosphatase 80 45 - 117 U/L 05/30/2025 5:44 AM [facility] Alanine Aminotransferase (ALT) 26 12 - 78 U/L 05/30/2025 5:44 AM [facility] Aspartate Aminotransferase (AST) 13(L) 15 - 37 U/L 05/30/2025 5:44 AM [facility] eGFR (Creatinine) >60 >=60 mL/min/1. 73m2 05/30/2025 5:44 AM [facility] Comment: [facility] utilizes CKD-EPI Creatinine 2020 to report eGFR. Values < 60 mL/min/1.73 m2 may indicate CKD if present for more than three months AND creatinine is at steady state. The eGFR provides a rough estimate of kidney function. For further guidance, please refer to the CKD: Adult Audio Visual Director Signature pathway. Creatinine Delta 05/30/20 5:44 AM [facility] Comment:No previous creatini ne <5.00 mg/dL is available within the previous 12 months to calculate a delta creatinine. Blood Venipuncture / Unknown 05/30/2025 4:56 AM EDT 05/30/2025 5:05 AM EDT us Chu Carpio MD LAB BLOOD ORDERABLES Final Res ult Performing Organization Address City/[facility]/[place] [address], [facility] [phone] * Troponin T High Sensitivity, Emergency; 0 hour baseline with reflex (1 hour and 3 hour) (54:56 AM EDT) [facility] High Sensitivity Troponin T <6 See Comment ng/L 05/30/2025 5:30 AM EDT [facility] Comment:High Sensitivity Tro ponin T levels should be interpreted in the context of the [facility] Care Signature pathway. Blood Venipuncture / Unknown 05/30/2025 4:56 AM EDT 05/30/2025 5:05 AM EDT Chu Carpio MD LAB BLOOD ORDERABLES Final Res ult Performing Organization Address [facility] [place] [address], [facility] [phone] * CBC auto differential (05/30/2025 4:56 AM EDT) [facility] WBC 9.8 4.0 - 11.0 x1000/ L 05/30/2025 5:07 AM [facility] RBC 5.16 4.00 - 6.00 M/ L 05/30/2025 5:07 AM [facility] Hemoglobin 16.2 13.2 - 17.1 g/dL 05/30/2025 5:07 AM [facility] Hematocrit 46.70 38.50 - 50.00 % 05/30/2025 5:07 AM [facility] MCV 90.5 80.0 - 100.0 fL 05/30/2025 5:07 AM [facility] MCH 31.4 27.0 - 33.0 pg 05/30/2025 5:07 AM [facility] MCHC 34.7 31.0 - 36.0 g/dL 05/30/2025 5:07 AM [facility] RDW-CV 11.9 11.0 - 15.0 % 05/30/2025 5:07 AM [facility] Platelets 213 150 - 420 x1000/ L 05/30/2025 5:07 AM [facility] MPV 10.8 8.0 - 12.0 fL 05/30/2025 5:07 AM [facility] Neutrophils 71.8 39.0 - 72.0 % 05/30/2025 5:07 AM [facility] Lymphocytes 19.5 17.0 - 50.0 % 05/30/2025 5:07 AM [facility] Monocytes 6.5 4.0 - 12.0 % 05/30/2025 5:07 AM [facility] Eosinophils 1.6 0.0 - 5.0 % 05/30/2025 5:07 AM [facility] Basophil 0.4 0.0 - 1.4 % 05/30/2025 5:07 AM [facility] Immature Granulocytes 0.2 0.0 - 1.0 % 05/30/2025 5:07 AM [facility] nRBC 0.0 0.0 - 1.0 % 05/30/2025 5:07 AM [facility] Absolute Lymphocyte Count 1.91 0.60 - 3.70 x 1000/ L 05/30/2025 5:07 AM [facility] Monocyte Absolute Count 0.64 0.00 - 1.00 x 1000/ L 05/30/2025 5:07 AM [facility] Eosinophil Absolute Count 0.16 0.00 - 1.00 x 1000/ L 05/30/2025 5:07 AM [facility] Basophil Absolute Count 0.04 0.00 - 1.00 x 1000/ L 05/30/2025 5:07 AM [facility] Absolute Immature Granulocyte Count 0.02 0.00 - 0.30 x 1000/ L 05/30/2025 5:07 AM [facility] Absolute nRBC 0.00 0.00 - 1.00 x 1000/ L 05/30/2025 5:07 AM [facility] ANC (Abs Neutrophil Count) 7.02 2.00 - 7.60 x 1000/ L 05/30/2025 5:07 AM [facility] Blood Venipuncture / Unknown 05/30/2025 4:56 AM EDT 05/30/2025 5:05 AM EDT us Chu Carpio MD LAB BLOOD ORDERABLES Final Res ult Performing Organization Address [facility] [place] [address], [facility] [phone] * Lipase (05/30/2025 4:56 AM EDT) Lipase 33 13 - 75 U/L 05/30/2025 5:44 AM EDT [facility] Blood Venipuncture / Unknown 05/30/2025 4:56 AM EDT 05/30/2025 5:05 AM EDT us Chu Carpio MD LAB BLOOD ORDERABLES Final Res ult Performing Organization Address [facility] [place] [address], [facility] [phone] * EKG (05/30/2025 4:56 AM EDT) Heart Rate 54 bpm [facility] EKG QRS Interval 70 ms [facility] EKG QT Interval 458 ms [facility] EKG QTC Interval 435 ms [facility] EKG P Crowder 20 deg [facility] EKG QRS Crowder 65 deg [facility] EKG T Wave Crowder 36 deg [facility] EKG P-R Interval 198 msec [facility] EKG SEVERITY Abnormal ECG severity [facility] EKG Comment::SINUS BRADYCARDIA:C onsider left ventricular hypertrophy:Counterclock pedraza rotation of the heart:Non specific ST-T wave abnormalities:No previous:Electronically Signed On 05-30-2025 14:01:22 EDT by Michael Marrero MD OTHER / Unknown 05/30/2025 4 :56 AM EDT us Chu Carpio MD ECG ORDERABLES Edited Result - Final Performing Organization Address [facility]/State/ZIP Co de Phone Number [facility] EKG from Last 3 Months Insurance [address] [place] [phone] [employer] [address] [place] [phone] [employer]
== END 2025-07-27 10:15 | disposition home or self-care (01) ==
LOC: HO.HGS 09:00
PROVIDERS: PCP Nurse Practitioner Family; Visit Provider Surgery
DX: Z90.49 Acquired absence of other specified parts of digestive tract (principal); K81.0 Acute cholecystitis
CPT/HCPCS: 99024

== ENCOUNTER 2025-08-25 08:12 | Outpatient (REF) | payer OTHER, SELFPAY ==
--- NOTE | ~2025-08-25 | XR_ITS ---
EXAMINATION: XR WRIST, RIGHT CLINICAL INFORMATION: M25.531 - Pain in right wrist COMPARISON: None available. TECHNIQUE: PA, lateral, and oblique views of the right wrist. FINDINGS: No visible acute fracture or dislocation. Mild ulnar negative variance. No significant joint space narrowing. No aggressive bony lesion. No erosions or abnormal soft tissue calcifications. XR/XR wrist RT min 3V IMPRESSION: No radiographic evidence of acute osseous findings. Electronically signed by: Shiva Browne MD 08/25/2025 09:43 AM EDT
--- OUTSIDE RECORDS SUMMARY | 2025-08-26 08:18 | XMS_ITS | Clinical Summary ---
Author Organization [address] Address [address] [place] [phone] Phone Care Team Providers Care Barrel Dedenting Machine Operator Name Role Phone Unavailable Primary Care Provider Unavailabl e Allergies No known active allergies Encounters Date Type Department Care Team Description 05/30/2025 4:38 AM EDT - 05/30/2025 9:35 AM EDT Emergency [facility] [address] [place] [address] [phone] Chu Carpio MD Stevens, Anna L, MD [...] blue top specimen (05/30/2025 4:58 AM EDT) [facility] Hold Specimen Hold 05/30/2025 2:02 PM EDT [facility] Blood Venipuncture / Unknown 05/30/2025 4:58 AM EDT 05/30/2025 5:05 AM EDT us Chu Carpio MD LAB BLOOD ORDERABLES Final Res ult Performing Organization Address [facility] [place] [address], [facility] [phone] * Extra gold top specimen (05/30/2025 4:58 AM EDT) Blood Venipuncture / Unknown 05/30/2025 4:58 AM EDT 05/30/2025 5:05 AM EDT Chu Carpio MD LAB BLOOD ORDERABLES Final Res ult Performing Organization Address [facility] [place] [address], [facility] [phone] * (ABNORMAL) Comprehensive metabolic panel (05/30/2025 4:56 AM EDT) [facility] Sodium 143 136 - 145 mmol/L 05/30/2025 5:44 AM [facility] Potassium 4.2 3.5 - 5.1 mmol/L 05/30/2025 5:44 AM [facility] Chloride 110(H) 98 - 107 mmol/L 05/30/2025 5:44 AM [facility] CO2 27 21 - 32 mmol/L 05/30/2025 5:44 AM [facility] Anion Gap 6 5 - 15 mmol/L 05/30/2025 5:44 AM [facility] Glucose 129(H) 65 - 110 mg/dL 05/30/2025 5:44 AM [facility] Comment: Non-fastin-110 mg/dL Fasting (minimum 6 hrs): 65-99 mg/dL BUN 21(H) 7 - 18 mg/dL 05/30/2025 5:44 AM [facility] Creatinine 0.98 0.70 - 1.30 mg/dL 05/30/2025 5:44 AM [facility] Calcium 9.1 8.5 - 10.1 mg/dL 05/30/2025 5:44 AM [facility] Total Protein 7.0 6.4 - 8.2 g/dL 05/30/2025 5:44 AM [facility] Albumin 3.8 3.4 - 5.0 g/dL 05/30/2025 5:44 AM [facility] Globulin 3.2 2.5 - 5.0 g/dL 05/30/2025 5:44 AM [facility] Total Bilirubin 0.4 0.2 - 1.0 mg/dL 05/30/2025 5:44 AM [facility] Comment:Use of this assay is not recommended for patients undergoing treatment with Eltrombopag due to the potential for falsely elevated results. Alkaline Phosphatase 80 45 - 117 U/L 05/30/2025 5:44 AM [facility] Alanine Aminotransferase (ALT) 26 12 - 78 U/L 05/30/2025 5:44 AM [facility] Aspartate Aminotransferase (AST) 13(L) 15 - 37 U/L 05/30/2025 5:44 AM [facility] eGFR (Creatinine) >60 >=60 mL/min/1. 73m2 05/30/2025 5:44 AM [facility] Comment: [facility] utilizes CKD-EPI Creatinine 2020 to report eGFR. Values < 60 mL/min/1.73 m2 may indicate CKD if present for more than three months AND creatinine is at steady state. The eGFR provides a rough estimate of kidney function. For further guidance, please refer to the CKD: Adult Epitaxial Reactor Operator Signature pathway. Creatinine Delta 05/30/20 5:44 AM [facility] Comment:No previous creatini ne <5.00 mg/dL is available within the previous 12 months to calculate a delta creatinine. Blood Venipuncture / Unknown 05/30/2025 4:56 AM EDT 05/30/2025 5:05 AM EDT us Chu Carpio MD LAB BLOOD ORDERABLES Final Res ult Performing Organization Address City/[facility]/[place] [address], [facility] [phone] * Troponin T High Sensitivity, Emergency; 0 hour baseline with reflex (1 hour and 3 hour) (54:56 AM EDT) [facility] High Sensitivity Troponin T <6 See Comment ng/L 05/30/2025 5:30 AM EDT [facility] Comment:High Sensitivity Tro ponin T levels should be interpreted in the context of the [facility] Care Signature pathway. Blood Venipuncture / Unknown 05/30/2025 4:56 AM EDT 05/30/2025 5:05 AM EDT Chu Carpio MD LAB BLOOD ORDERABLES Final Res ult Performing Organization Address [facility] [place] [address], [facility] [phone] * CBC auto differential (05/30/2025 4:56 AM EDT) [facility] WBC 9.8 4.0 - 11.0 x1000/ L 05/30/2025 5:07 AM [facility] RBC 5.16 4.00 - 6.00 M/ L 05/30/2025 5:07 AM [facility] Hemoglobin 16.2 13.2 - 17.1 g/dL 05/30/2025 5:07 AM [facility] Hematocrit 46.70 38.50 - 50.00 % 05/30/2025 5:07 AM [facility] MCV 90.5 80.0 - 100.0 fL 05/30/2025 5:07 AM [facility] MCH 31.4 27.0 - 33.0 pg 05/30/2025 5:07 AM [facility] MCHC 34.7 31.0 - 36.0 g/dL 05/30/2025 5:07 AM [facility] RDW-CV 11.9 11.0 - 15.0 % 05/30/2025 5:07 AM [facility] Platelets 213 150 - 420 x1000/ L 05/30/2025 5:07 AM [facility] MPV 10.8 8.0 - 12.0 fL 05/30/2025 5:07 AM [facility] Neutrophils 71.8 39.0 - 72.0 % 05/30/2025 5:07 AM [facility] Lymphocytes 19.5 17.0 - 50.0 % 05/30/2025 5:07 AM [facility] Monocytes 6.5 4.0 - 12.0 % 05/30/2025 5:07 AM [facility] Eosinophils 1.6 0.0 - 5.0 % 05/30/2025 5:07 AM [facility] Basophil 0.4 0.0 - 1.4 % 05/30/2025 5:07 AM [facility] Immature Granulocytes 0.2 0.0 - 1.0 % 05/30/2025 5:07 AM [facility] nRBC 0.0 0.0 - 1.0 % 05/30/2025 5:07 AM [facility] Absolute Lymphocyte Count 1.91 0.60 - 3.70 x 1000/ L 05/30/2025 5:07 AM [facility] Monocyte Absolute Count 0.64 0.00 - 1.00 x 1000/ L 05/30/2025 5:07 AM [facility] Eosinophil Absolute Count 0.16 0.00 - 1.00 x 1000/ L 05/30/2025 5:07 AM [facility] Basophil Absolute Count 0.04 0.00 - 1.00 x 1000/ L 05/30/2025 5:07 AM [facility] Absolute Immature Granulocyte Count 0.02 0.00 - 0.30 x 1000/ L 05/30/2025 5:07 AM [facility] Absolute nRBC 0.00 0.00 - 1.00 x 1000/ L 05/30/2025 5:07 AM [facility] ANC (Abs Neutrophil Count) 7.02 2.00 - 7.60 x 1000/ L 05/30/2025 5:07 AM [facility] Blood Venipuncture / Unknown 05/30/2025 4:56 AM EDT 05/30/2025 5:05 AM EDT us Chu Carpio MD LAB BLOOD ORDERABLES Final Res ult Performing Organization Address [facility] [place] [address], [facility] [phone] * Lipase (05/30/2025 4:56 AM EDT) Lipase 33 13 - 75 U/L 05/30/2025 5:44 AM EDT [facility] Blood Venipuncture / Unknown 05/30/2025 4:56 AM EDT 05/30/2025 5:05 AM EDT us Chu Carpio MD LAB BLOOD ORDERABLES Final Res ult Performing Organization Address [facility] [place] [address], [facility] [phone] * EKG (05/30/2025 4:56 AM EDT) Heart Rate 54 bpm [facility] EKG QRS Interval 70 ms [facility] EKG QT Interval 458 ms [facility] EKG QTC Interval 435 ms [facility] EKG P [place] 20 deg [facility] EKG QRS [place] 65 deg [facility] EKG T Wave [place] 36 deg [facility] EKG P-R Interval 198 msec [facility] EKG SEVERITY Abnormal ECG severity [facility] EKG Comment::SINUS BRADYCARDIA:C onsider left ventricular hypertrophy:Counterclock pedraza rotation of the heart:Non specific ST-T wave abnormalities:No previous:Electronically Signed On 05-30-2025 14:01:22 EDT by Michael Marrero MD OTHER / Unknown 05/30/2025 4 :56 AM EDT us Chu Carpio MD ECG ORDERABLES Edited Result - Final Performing Organization Address [facility]/State/ZIP Co de Phone Number [facility] EKG from Last 3 Months Insurance [address] [place] [phone] [employer] [address] [place] [phone] [employer]
== END 2025-08-25 08:13 | disposition home or self-care (01) ==
LOC: HO.HOSX 08:12
PROVIDERS: Visit Provider Orthopaedic Surgery
DX: S62.114A Nondisplaced fracture of triquetrum [cuneiform] bone, right wrist, initial encounter for closed fracture (principal); W18.40XA Slipping, tripping and stumbling without falling, unspecified, initial encounter; Y93.9 Activity, unspecified; Y92.69 Other specified industrial and construction area as the place of occurrence of the external cause; Y99.0 Civilian activity done for income or pay
CPT/HCPCS: 73110; 99202

== ENCOUNTER 2025-08-25 09:19 | Outpatient (AMB) | payer OTHER, SELFPAY ==
[2025-08-25 09:50] VITALS: BMI 20.7
--- NOTE | 2025-08-25 09:50 | MHC.OFFVIS ---
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 States he tripped over a pallet and put his hands out to break his fall. He felt pain and swelling to his hand. He was seen at urgent care where xray were taken, a fracture was confirmed and patient was given a wrist brace to use, he was referred to hand specialist. Today patient states he has no pain or discomfort. He continues to use his wrist brace. Xrays updated in office. Allergies piperacillin Allergy (Verified 08/25/25 09:53) Hives HPI HPI FC-RT wrist Triquetral fracture-WC injury 08/18/25: Details: Matthias is a 59 year old right hand dominant man, here with his , for a right Triquetral fracture, from a fall, DOI: 08/18/25. This is a work related injury, he tripped over a pallet at work. He was seen at urgent care and placed in a velcro wrist splint. He says he is doing well and denies any pain while in his splint. 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 He says he has been working light duty and not doing any heavy lifting. He says his job requires lifting up to ~25lb spools of wire. [facility] Medical History HTN (hypertension) Surgical History Hx laparoscopic cholecystectomy (07/20/25) Hx of appendectomy Social History (Updated 08/25/25 @ 09:53 by LOIS Good) Household Members: Spouse and Children Housing: Apartment Do you presently have visiting nurse or other home services: No Alcohol intake: former Patient Tobacco Use Status: Current everyday Tobacco user Tobacco use type: Cigarette Cigarettes Per Day: 6 e-Cigarette/Vaping Use: Never Used Second Hand Smoke Exposure: Yes service: No Current occupational status: employed Current occupation: [employer] hand Current occupational exposures/hazards: No Review of Systems Const All systems reviewed & are unremarkable except as noted in HPI and below Physical Exam Vital Signs: BMI result Body Mass Index 20.7 Const General: cooperative, healthy appearing and no acute distress Orientation/consciousness: patient oriented x3 HEENT Head: Yes normocephalic and Yes atraumatic Eyes EOM: EOMs intact bilaterally Resp Effort & Inspection: normal respiratory effort and able to speak in complete sentences Cardio Jugular venous distension: no JVD Skin General skin exam: turgor normal Rashes: no rashes Neuro General: patient oriented x3 Extrem Other: Evaluation of Right Upper Extremity: The patient is alert, oriented, and in no acute distress Neuro: Decreased subjective sensation in the radial aspect of his thumb. Normal sensation to all other digits & the ulnar aspect of the thumb Vascular: Cap refill brisk ROM: He can make a fist and extend all his digits Skin: No lacerations or abrasions or evidence of open fracture General: No Erythema or evidence of infection. Mild ecchymosis & no swelling Point tender over the dorsal & ulnar aspect of the triquetrum No snuffbox or scaphoid tubercle tenderness No tenderness over the pisiform No tenderness over the distal radius, DRUJ, or distal ulna DRUJ stable Radiographs: 3 views of the right wrist were taken and viewed by me today in clinic. They show a nondisplaced triquetrum body fracture. He is also point tender directly over the triquetrum Psych Appearance: grossly normal Affect: normal affect Attitude: cooperative Office Procedures AMB Fracture Care Details: Fracture care triquetrum 20290 Fracture Billing Code: Fracture Billing Code Assessment & Plan Assessment & Plan (1) Fracture of triquetrum of right wrist: Code(s): S62.111A - Displaced fracture of triquetrum [cuneiform] bone, right wrist, initial encounter for closed fracture Category: Medical Plan Assessment & Plan: 1. Right Triquetrum body fracture, nondisplaced From a fall, DOI: 08/18/25 This is a work injury I educated him about this condition I discussed operative and non-operative treatment options We will manage this conservatively, and he is in agreement He will wear his velcro wrist splint, like a cast except for showering, for the next 3 weeks. After 2 weeks he can remove this when at rest at home, or while sleeping, as long as he does not have pain. I discussed activity modifications, he is to lift nothing heavier than a cellphone for the next 4 weeks. They should also avoid any heavy impact activities, falls, or sports activities for the next 6 weeks He will perform gentle finger ROM exercises at home, while in his splint. 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 He was given a note for work to remain on light duty, with a 3lb weight limit, for the next 4 weeks He will follow up in 3-4 weeks, with X-rays, 3V R wrist, OOP Scribed for Ludmila Maloney MD by Antoine Perez, medical record coder, on 08/25/25 at 10:05 AM, EST. Orders: Orders XR wrist RT min 3V Today M25.531 - Pain in right wrist Coding Level of Care Code New Pt Level 3 (78986) Diagnoses Fracture of triquetrum of right wrist S62.111A CPT Codes Fracture Care - Fracture Billing Code: Fracture Billing Code ([id number])
--- OUTSIDE RECORDS SUMMARY | 2025-08-25 10:29 | XMS_ITS | Clinical Summary ---
Author Organization [address] Address [address] [place] [phone] Phone Care Team Providers Care Deicer Inspector Electric Name Role Phone Unavailable Primary Care Provider Unavailabl e Allergies No known active allergies Encounters Date Type Department Care Team Description 05/30/2025 4:38 AM EDT - 05/30/2025 9:35 AM EDT Emergency [facility] [address] [place] [address] [phone] Chu Carpio MD Stevens, Anna L, MD [...] DOSE ACQUIRED DURING SCAN: 580.95 mGy.cm. [facility] Imaging Department strives for high quality imaging [...] DOSE ACQUIRED DURING SCAN: 580.95 mGy.cm. [facility] Imaging Department strives for high qualityimaging with [...] blue top specimen (05/30/2025 4:58 AM EDT) [facility] Hold Specimen Hold 05/30/2025 2:02 PM EDT [facility] Blood Venipuncture / Unknown 05/30/2025 4:58 AM EDT 05/30/2025 5:05 AM EDT us Chu Carpio MD LAB BLOOD ORDERABLES Final Res ult Performing Organization Address [facility] [place] [address], [facility] [phone] * Extra gold top specimen (05/30/2025 4:58 AM EDT) Blood Venipuncture / Unknown 05/30/2025 4:58 AM EDT 05/30/2025 5:05 AM EDT Chu Carpio MD LAB BLOOD ORDERABLES Final Res ult Performing Organization Address [facility] [place] [address], [facility] [phone] * (ABNORMAL) Comprehensive metabolic panel (05/30/2025 4:56 AM EDT) [facility] Sodium 143 136 - 145 mmol/L 05/30/2025 5:44 AM [facility] Potassium 4.2 3.5 - 5.1 mmol/L 05/30/2025 5:44 AM [facility] Chloride 110(H) 98 - 107 mmol/L 05/30/2025 5:44 AM [facility] CO2 27 21 - 32 mmol/L 05/30/2025 5:44 AM [facility] Anion Gap 6 5 - 15 mmol/L 05/30/2025 5:44 AM [facility] Glucose 129(H) 65 - 110 mg/dL 05/30/2025 5:44 AM [facility] Comment: Non-fastin-110 mg/dL Fasting (minimum 6 hrs): 65-99 mg/dL BUN 21(H) 7 - 18 mg/dL 05/30/2025 5:44 AM [facility] Creatinine 0.98 0.70 - 1.30 mg/dL 05/30/2025 5:44 AM [facility] Calcium 9.1 8.5 - 10.1 mg/dL 05/30/2025 5:44 AM [facility] Total Protein 7.0 6.4 - 8.2 g/dL 05/30/2025 5:44 AM [facility] Albumin 3.8 3.4 - 5.0 g/dL 05/30/2025 5:44 AM [facility] Globulin 3.2 2.5 - 5.0 g/dL 05/30/2025 5:44 AM [facility] Total Bilirubin 0.4 0.2 - 1.0 mg/dL 05/30/2025 5:44 AM [facility] Comment:Use of this assay is not recommended for patients undergoing treatment with Eltrombopag due to the potential for falsely elevated results. Alkaline Phosphatase 80 45 - 117 U/L 05/30/2025 5:44 AM [facility] Alanine Aminotransferase (ALT) 26 12 - 78 U/L 05/30/2025 5:44 AM [facility] Aspartate Aminotransferase (AST) 13(L) 15 - 37 U/L 05/30/2025 5:44 AM [facility] eGFR (Creatinine) >60 >=60 mL/min/1. 73m2 05/30/2025 5:44 AM [facility] Comment: [facility] utilizes CKD-EPI Creatinine 2020 to report eGFR. Values < 60 mL/min/1.73 m2 may indicate CKD if present for more than three months AND creatinine is at steady state. The eGFR provides a rough estimate of kidney function. For further guidance, please refer to the CKD: Adult Carpenter'S Assistant Signature pathway. Creatinine Delta 05/30/20 5:44 AM [facility] Comment:No previous creatini ne <5.00 mg/dL is available within the previous 12 months to calculate a delta creatinine. Blood Venipuncture / Unknown 05/30/2025 4:56 AM EDT 05/30/2025 5:05 AM EDT us Chu Carpio MD LAB BLOOD ORDERABLES Final Res ult Performing Organization Address City/[facility]/[place] [address], [facility] [phone] * Troponin T High Sensitivity, Emergency; 0 hour baseline with reflex (1 hour and 3 hour) (54:56 AM EDT) [facility] High Sensitivity Troponin T <6 See Comment ng/L 05/30/2025 5:30 AM EDT [facility] Comment:High Sensitivity Tro ponin T levels should be interpreted in the context of the [facility] Care Signature pathway. Blood Venipuncture / Unknown 05/30/2025 4:56 AM EDT 05/30/2025 5:05 AM EDT Chu Carpio MD LAB BLOOD ORDERABLES Final Res ult Performing Organization Address [facility] [place] [address], [facility] [phone] * CBC auto differential (05/30/2025 4:56 AM EDT) [facility] WBC 9.8 4.0 - 11.0 x1000/ L 05/30/2025 5:07 AM [facility] RBC 5.16 4.00 - 6.00 M/ L 05/30/2025 5:07 AM [facility] Hemoglobin 16.2 13.2 - 17.1 g/dL 05/30/2025 5:07 AM [facility] Hematocrit 46.70 38.50 - 50.00 % 05/30/2025 5:07 AM [facility] MCV 90.5 80.0 - 100.0 fL 05/30/2025 5:07 AM [facility] MCH 31.4 27.0 - 33.0 pg 05/30/2025 5:07 AM [facility] MCHC 34.7 31.0 - 36.0 g/dL 05/30/2025 5:07 AM [facility] RDW-CV 11.9 11.0 - 15.0 % 05/30/2025 5:07 AM [facility] Platelets 213 150 - 420 x1000/ L 05/30/2025 5:07 AM [facility] MPV 10.8 8.0 - 12.0 fL 05/30/2025 5:07 AM [facility] Neutrophils 71.8 39.0 - 72.0 % 05/30/2025 5:07 AM [facility] Lymphocytes 19.5 17.0 - 50.0 % 05/30/2025 5:07 AM [facility] Monocytes 6.5 4.0 - 12.0 % 05/30/2025 5:07 AM [facility] Eosinophils 1.6 0.0 - 5.0 % 05/30/2025 5:07 AM [facility] Basophil 0.4 0.0 - 1.4 % 05/30/2025 5:07 AM [facility] Immature Granulocytes 0.2 0.0 - 1.0 % 05/30/2025 5:07 AM [facility] nRBC 0.0 0.0 - 1.0 % 05/30/2025 5:07 AM [facility] Absolute Lymphocyte Count 1.91 0.60 - 3.70 x 1000/ L 05/30/2025 5:07 AM [facility] Monocyte Absolute Count 0.64 0.00 - 1.00 x 1000/ L 05/30/2025 5:07 AM [facility] Eosinophil Absolute Count 0.16 0.00 - 1.00 x 1000/ L 05/30/2025 5:07 AM [facility] Basophil Absolute Count 0.04 0.00 - 1.00 x 1000/ L 05/30/2025 5:07 AM [facility] Absolute Immature Granulocyte Count 0.02 0.00 - 0.30 x 1000/ L 05/30/2025 5:07 AM [facility] Absolute nRBC 0.00 0.00 - 1.00 x 1000/ L 05/30/2025 5:07 AM [facility] ANC (Abs Neutrophil Count) 7.02 2.00 - 7.60 x 1000/ L 05/30/2025 5:07 AM [facility] Blood Venipuncture / Unknown 05/30/2025 4:56 AM EDT 05/30/2025 5:05 AM EDT us Chu Carpio MD LAB BLOOD ORDERABLES Final Res ult Performing Organization Address [facility] [place] [address], [facility] [phone] * Lipase (05/30/2025 4:56 AM EDT) Lipase 33 13 - 75 U/L 05/30/2025 5:44 AM EDT [facility] Blood Venipuncture / Unknown 05/30/2025 4:56 AM EDT 05/30/2025 5:05 AM EDT us Chu Carpio MD LAB BLOOD ORDERABLES Final Res ult Performing Organization Address [facility] [place] [address], [facility] [phone] * EKG (05/30/2025 4:56 AM EDT) Heart Rate 54 bpm [facility] EKG QRS Interval 70 ms [facility] EKG QT Interval 458 ms [facility] EKG QTC Interval 435 ms [facility] EKG P [place] 20 deg [facility] EKG QRS [place] 65 deg [facility] EKG T Wave [place] 36 deg [facility] EKG P-R Interval 198 msec [facility] EKG SEVERITY Abnormal ECG severity [facility] EKG Comment::SINUS BRADYCARDIA:C onsider left ventricular hypertrophy:Counterclock pedraza rotation of the heart:Non specific ST-T wave abnormalities:No previous:Electronically Signed On 05-30-2025 14:01:22 EDT by Michael Marrero MD OTHER / Unknown 05/30/2025 4 :56 AM EDT us Chu Carpio MD ECG ORDERABLES Edited Result - Final Performing Organization Address [facility]/State/ZIP Co de Phone Number [facility] EKG from Last 3 Months Insurance [address] [place] [phone] [employer] [address] [place] [phone] [employer]
== END 2025-08-25 10:22 | disposition home or self-care (01) ==
LOC: HO.HOS 09:20
PROVIDERS: PCP Nurse Practitioner Family; Visit Provider Orthopaedic Surgery
DX: S62.111A Displaced fracture of triquetrum [cuneiform] bone, right wrist, initial encounter for closed fracture (principal)
CPT/HCPCS: 99203

== ENCOUNTER → 2025-08-25 09:21 | Outpatient (BNV) | payer OTHER, SELFPAY | PROVIDERS: Visit Provider Radiology Diagnostic Ultrasound | DX: M25.531 Pain in right wrist (principal) | CPT/HCPCS: 73110 ==

== ENCOUNTER 2025-09-22 08:43 | Outpatient (REF) | payer OTHER, SELFPAY ==
--- NOTE | ~2025-09-22 | XR_ITS ---
EXAMINATION: XR WRIST, RIGHT CLINICAL INFORMATION: M25.531 - Pain in right wrist COMPARISON: 08/25/2025 TECHNIQUE: PA, lateral, and oblique views of the right wrist. FINDINGS: On the lateral, there are 2 small bony fragments dorsal to the central aspect of the carpus concerning for a fracture. No there is no joint diastases or carpal row step-off. XR/XR wrist RT min 3V IMPRESSION: Suspected triquetral avulsion fracture. Electronically signed by: Davin Drew MD 09/22/2025 01:36 PM EST
--- OUTSIDE RECORDS SUMMARY | 2025-09-22 09:07 | XMS_ITS | Clinical Summary ---
Author Organization [address] Address [address] [place] [phone] Phone Care Team Providers Care Senior Applications Engineer Name Role Phone Unavailable Primary Care Provider Unavailabl e Allergies No known active allergies Social History Tobacco Use Types Packs/Day Years [...] vaccine 06/11/2025 Covid-19 vaccine series (1 - season) 2025 Diabetes screening 05/30/2028 05/30/2025 RSV Immunization (1 - 1-dose 75+ series) 2041 Meningococcal B Vaccine Aged Out No l onger eligible based on patient's age to complete this topic Meningococcal Vaccine Aged Out No darnell fredy eligible based on patient's age to complete this topic Procedures Procedure Name Priority Date/Time Associated Diagnosis Comments COMPREHENSIVE METABOLIC PANEL STAT 05/30/2025 4:56 AM EDT from Last 3 Months or Most Recently Relevant to Health Maintenance Results * (ABNORMAL) Comprehensive metabolic panel (05/30/2025 4:56 AM EDT) Sodium 143 136 - 145 mmol/L 05/30/2025 5:44 AM [facility] Potassium 4.2 3.5 - 5.1 mmol/L 05/30/2025 5:44 AM [facility] Chloride 110(H) 98 - 107 mmol/L 05/30/2025 5:44 AM [facility] CO2 27 21 - 32 mmol/L 05/30/2025 5:44 AM [facility] Anion Gap 6 5 - 15 mmol/L 05/30/2025 5:44 AM [facility] Glucose 129(H) 65 - 110 mg/dL 05/30/2025 5:44 AM [facility] Comment: Non-fastin-110 mg/dL Fasting (minimum 6 hrs): 65-99 mg/dL BUN 21(H) 7 - 18 mg/dL 05/30/2025 5:44 AM [facility] Creatinine 0.98 0.70 - 1.30 mg/dL 05/30/2025 5:44 AM [facility] Calcium 9.1 8.5 - 10.1 mg/dL 05/30/2025 5:44 AM [facility] Total Protein 7.0 6.4 - 8.2 g/dL 05/30/2025 5:44 AM [facility] Albumin 3.8 3.4 - 5.0 g/dL 05/30/2025 5:44 AM [facility] Globulin 3.2 2.5 - 5.0 g/dL 05/30/2025 5:44 AM [facility] Total Bilirubin 0.4 0.2 - 1.0 mg/dL 05/30/2025 5:44 AM [facility] Comment:Use of this assay is not recommended for patients undergoing treatment with Eltrombopag due to the potential for falsely elevated results. Alkaline Phosphatase 80 45 - 117 U/L 05/30/2025 5:44 AM [facility] Alanine Aminotransferase (ALT) 26 12 - 78 U/L 05/30/2025 5:44 AM [facility] Aspartate Aminotransferase (AST) 13(L) 15 - 37 U/L 05/30/2025 5:44 AM [facility] eGFR (Creatinine) >60 >=60 mL/min/1. 73m2 05/30/2025 5:44 AM [facility] Comment: [facility] utilizes CKD-EPI Creatinine 2020 to report eGFR. Values < 60 mL/min/1.73 m2 may indicate CKD if present for more than three months AND creatinine is at steady state. The eGFR provides a rough estimate of kidney function. For further guidance, please refer to the CKD: Adult Supervisor Water Softener Service Signature pathway. Creatinine Delta 05/30/20 5:44 AM [facility] Comment:No previous creatini ne <5.00 mg/dL is available within the previous 12 months to calculate a delta creatinine. Blood Venipuncture / Unknown 05/30/2025 4:56 AM EDT 05/30/2025 5:05 AM EDT us Chu Carpio MD LAB BLOOD ORDERABLES Final Res ult [address] [address], [facility] [phone] from Last 3 Months or Most Recently Relevant to Health Maintenance Insurance [address] [place], [place] [address] [id number] [employer] [place] [address] [employer] [address] [place] [phone] [employer]
== END 2025-09-22 08:44 | disposition home or self-care (01) ==
LOC: HO.HOSX 08:43
PROVIDERS: Visit Provider Orthopaedic Surgery
DX: S62.111D Displaced fracture of triquetrum [cuneiform] bone, right wrist, subsequent encounter for fracture with routine healing (principal); W01.0XXD Fall on same level from slipping, tripping and stumbling without subsequent striking against object, subsequent encounter; Y99.0 Civilian activity done for income or pay
CPT/HCPCS: 73110; 99212

== ENCOUNTER 2025-09-22 12:57 | Outpatient (AMB) | payer OTHER, SELFPAY ==
[2025-09-22 13:07] VITALS: BMI 20.7
--- NOTE | 2025-09-22 13:07 | A.OFFVIS_ITS ---
Vital Signs 09/22/25 13:07 Height 5 ft 9 in Weight 140 lb BMI 20.7 Intake Visit Reasons: OV-RT wrist Triquetral FC-injury 08/18/25 Intake Note: Matthias 59 yr old right hand dominant man. 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 At his last visit he was advise to wear his velcro wrist brace with activities. Today patient states he has been wearing his brace 10 hours a day while at work and has been working on gentle ROM. Allergies piperacillin Allergy (Verified 09/22/25 13:15) Hives HPI HPI OV-RT wrist Triquetral FC-injury 08/18/25: Details: Matthias is a 59 year old right hand dominant man, here with his , for a right Triquetral fracture, from a fall, DOI: 08/18/25. This is a work related injury, he tripped over a pallet at work. He says he is doing well and denies any pain. He says he has been wearing his splint for 10 hour periods during the day while at work, and working on ROM when out of his splint. 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 He says he has been working light duty and not doing any heavy lifting. He says his job requires lifting up to ~25lb spools of wire. [facility] Medical History HTN (hypertension) Surgical History Hx laparoscopic cholecystectomy (07/20/25) Hx of appendectomy Social History Household Members: Spouse and Children Housing: Apartment Do you presently have visiting nurse or other home services: No Alcohol intake: former Patient Tobacco Use Status: Current everyday Tobacco user Tobacco use type: Cigarette Cigarettes Per Day: 6 e-Cigarette/Vaping Use: Never Used Second Hand Smoke Exposure: Yes service: No Current occupational status: employed Current occupation: [employer] rt hand Current occupational exposures/hazards: No Review of Systems Const All systems reviewed & are unremarkable except as noted in HPI and below Physical Exam Vital Signs: BMI result Body Mass Index 20.7 Const General: no acute distress and alert Orientation/consciousness: patient oriented x3 Neuro General: patient oriented x3 Extrem Other: Evaluation of Right Upper Extremity: The patient is alert, oriented, and in no acute distress Neuro: Decreased subjective sensation in the radial aspect of his thumb. Normal sensation to all other digits & the ulnar aspect of the thumb Vascular: Cap refill brisk ROM: He can make a fist and extend all his digits Smooth & painless wrist ROM Resolved ecchymosis & no swelling No tenderness over the dorsal & ulnar aspect of the triquetrum. No tenderness at the pisotriquetral joint. No snuffbox or scaphoid tubercle tenderness No tenderness over the pisiform, or with loading across the pisiform No tenderness over the distal radius, DRUJ, or distal ulna DRUJ stable Radiographs: 3 views of the right wrist were taken and viewed by me today in clinic. They show a nondisplaced triquetrum body fracture with some evidence of interval bony healing Psych Appearance: grossly normal Affect: normal affect Attitude: cooperative Assessment & Plan Assessment & Plan (1) Fracture of triquetrum of right wrist: Code(s): S62.111A - Displaced fracture of triquetrum [cuneiform] bone, right wrist, initial encounter for closed fracture Category: Medical Plan Assessment & Plan: 1. Right Triquetrum body fracture, nondisplaced From a fall, DOI: 08/18/25 This is a work injury I educated him about this condition I discussed operative and non-operative treatment options We will manage this conservatively, and he is in agreement He will wear his velcro wrist splint with daily activities for the next 5 weeks. I discussed activity modifications, he is to use his wrist for lightweight activities only for the next 4 weeks, 10lbs limit. They should also avoid any heavy impact activities, falls, or sports activities for the next 4 weeks He will perform gentle finger ROM exercises at home, while in his splint. 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 He was given a note for work to remain on light duty, with a 10lb weight limit, for the next 5 weeks He will follow up in 4-5 weeks, with X-rays, 3V R wrist, OOP. Anticipate d/c of his brace and return to full duty at work Scribed for Ludmila Maloney MD by Antoine Perez, medical health researcher, on 09/22/25 at 1:30 PM, EST. Orders: Orders XR wrist RT min 3V Today M25.531 - Pain in right wrist Coding Level of Care Code Global (47896) Diagnoses Fracture of triquetrum of right wrist S62.111A
== END 2025-09-22 13:55 | disposition home or self-care (01) ==
LOC: HO.HOS 12:57
PROVIDERS: Visit Provider Orthopaedic Surgery
DX: S62.111A Displaced fracture of triquetrum [cuneiform] bone, right wrist, initial encounter for closed fracture (principal)
CPT/HCPCS: 99213

== ENCOUNTER → 2025-09-22 13:01 | Outpatient (BNV) | payer OTHER, SELFPAY | PROVIDERS: Visit Provider Radiology Diagnostic Radiology | DX: M25.531 Pain in right wrist (principal) | CPT/HCPCS: 73110 ==

== ENCOUNTER 2025-10-20 08:28 | Outpatient (REF) | payer OTHER, SELFPAY ==
--- NOTE | ~2025-10-20 | XR_ITS ---
EXAMINATION: XR WRIST, RIGHT CLINICAL INFORMATION: M25.531 - Pain in right wrist COMPARISON: 09/22/2025, 08/25/2025. TECHNIQUE: PA, lateral, and oblique views of the right wrist. FINDINGS: There is a similar bony fragment dorsal to the central aspect of the carpus on the lateral projection, concerning for a triquetral fracture. There is otherwise no fracture, dislocation, or suspicious bone lesion. Carpal bones are otherwise intact and normally oriented. Joint spaces are preserved. There is mild persistent dorsal soft tissue swelling. XR/XR wrist RT min 3V IMPRESSION: No significant change. Possible dorsal triquetral fracture. Mild residual dorsal soft tissue swelling. Electronically signed by: Keshav Rios MD 10/20/2025 01:40 PM EST
== END 2025-10-20 08:29 | disposition home or self-care (01) ==
LOC: HO.HOSX 08:28
PROVIDERS: Visit Provider Orthopaedic Surgery
DX: S62.111D Displaced fracture of triquetrum [cuneiform] bone, right wrist, subsequent encounter for fracture with routine healing (principal); W18.30XD Fall on same level, unspecified, subsequent encounter; Y99.0 Civilian activity done for income or pay
CPT/HCPCS: 73110

== ENCOUNTER 2025-10-20 13:09 | Outpatient (AMB) | payer OTHER, SELFPAY ==
[2025-10-20 13:32] VITALS: BMI 20.7
--- NOTE | 2025-10-20 13:32 | MHC.OFFVIS ---
Vital Signs 10/20/25 13:32 Height 5 ft 9 in Weight 140 lb BMI 20.7 Intake Visit Reasons: OV-RT wrist Triquetral FC-injury 08/18/25 Intake Note: Matthias 59 yr old right hand dominant man. 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 At his last visit he was advise to continue to use his brace. 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 He was given a note for work to remain on light duty, with a 10lb weight limit, for the next 5 weeks. At todays visit we anticipate returning to work full duty. Patient states he has no pain and feels he is ready to return to work full duty with no restrictions. Allergies piperacillin Allergy (Verified 10/20/25 13:34) Hives HPI HPI OV-RT wrist Triquetral FC-injury 08/18/25: Details: Matthias is a 59 year old right hand dominant man, here with his , for a right Triquetral fracture, from a fall, DOI: 08/18/25. This is a work related injury, he tripped over a pallet at work. He says he is doing well and denies any pain. He says he has been wearing his splint for 10 hour periods during the day while at work, and working on ROM when out of his splint. 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 He says he has been working light duty and not doing any heavy lifting. He says his job requires lifting up to ~25lb spools of wire. He feels he is ready to return to full duty. [facility] Medical History HTN (hypertension) Surgical History Hx laparoscopic cholecystectomy (07/20/25) Hx of appendectomy Social History Household Members: Spouse and Children Housing: Apartment Do you presently have visiting nurse or other home services: No Alcohol intake: former Patient Tobacco Use Status: Current everyday Tobacco user Tobacco use type: Cigarette Cigarettes Per Day: 6 e-Cigarette/Vaping Use: Never Used Second Hand Smoke Exposure: Yes service: No Current occupational status: employed Current occupation: [employer], [employer] rt hand Current occupational exposures/hazards: No Physical Exam Vital Signs: BMI result Body Mass Index 20.7 Const General: no acute distress and alert Orientation/consciousness: patient oriented x3 Neuro General: patient oriented x3 Extrem Other: Evaluation of Right Upper Extremity: The patient is alert, oriented, and in no acute distress Neuro: Decreased subjective sensation in the radial aspect of his thumb. Normal sensation to all other digits & the ulnar aspect of the thumb Vascular: Cap refill brisk ROM: He can make a fist and extend all his digits Smooth & painless wrist ROM Nearly symmetrical wrist flexion & extension No tenderness over the dorsal & ulnar aspect of the triquetrum. No tenderness at the pisotriquetral joint. No snuffbox or scaphoid tubercle tenderness No tenderness over the pisiform, or with loading across the pisiform No tenderness over the distal radius, DRUJ, or distal ulna DRUJ stable Radiographs: 3 views of the right wrist were taken and viewed by me today in clinic. They show a nondisplaced triquetrum body fracture with good evidence of interval bony healing Psych Appearance: grossly normal Affect: normal affect Attitude: cooperative Assessment & Plan Assessment & Plan (1) Fracture of triquetrum of right wrist: Code(s): S62.111A - Displaced fracture of triquetrum [cuneiform] bone, right wrist, initial encounter for closed fracture Category: Medical Plan Assessment & Plan: 1. 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 He was given a note for work to return to full duty, without restrictions He will follow up prn Scribed for Ludmila Maloney MD by Antoine Perez, durable medical equipment technician, on 10/20/25 at 1:35 PM, EST. Orders: Orders XR wrist RT min 3V Today M25.531 - Pain in right wrist Coding Level of Care Code Global (91697) Diagnoses Fracture of triquetrum of right wrist S62.111A
== END 2025-10-20 13:43 | disposition home or self-care (01) ==
LOC: HO.HOS 13:10
PROVIDERS: Visit Provider Orthopaedic Surgery
DX: S62.111A Displaced fracture of triquetrum [cuneiform] bone, right wrist, initial encounter for closed fracture (principal)
CPT/HCPCS: 99213

== ENCOUNTER → 2025-10-20 13:15 | Outpatient (BNV) | payer OTHER, SELFPAY | PROVIDERS: Visit Provider Radiology Diagnostic Radiology | DX: M79.89 Other specified soft tissue disorders (principal) | CPT/HCPCS: 73110 ==